=== PATIENT | female | born 1945 | race Caucasian/White ===

== ENCOUNTER 2025-11-08 21:13 | Emergency (ER) | payer MEDICARE, SELFPAY ==
--- OUTSIDE RECORDS SUMMARY | 2025-10-25 10:35 | XMS_ITS | Encounter Summary ---
Author Organization [facility] Address [address] [place] [address] Care Team Providers Care Motor Electrician Name Role Phone Unavailable Primary Care Provider Unavailabl e Reason for Visit * ReasonCommentsFollow-up Encounter Details DateTypeDepartmentCare Team (Latest Contact Info)Pnxhhtmacxg21/08/2025 10:35 AM ESTOffice Visit [facility] [address] [facility] [address] [place] [address] Shaina Espinoza APRN-CNP [address] [facility] [address] [place] [address] Other atopic dermatitis; Melasma Social History Tobacco UseTypesPacks/DayYears UsedDateSmoking Tobacco: NeverSmokeless Tobacco: NeverAlcohol UseStandard Drinks/WeekCommentsNot Currently0 (1 standard drink = 0.6 oz pure alcohol)CommentsNoSex and Gender InformationValueDate RecordedSex Assigned at BirthNot on fileLegal DcaVnphpb77/01/2023 8:32 PM EDT Gender IdentityNot on fileSexual OrientationNot on filedocumented as of this encounter Progress Notes * KAYLEN Sanchez - 10/25/2025 10:35 AM EST Follow up Diagnosis: Atopic Dermatitis Location: neck Last visit: 1 month ago Symptoms: clear today Status: stable on treatment Current treatment: Triamcinolone 0.025% cream All pertinent medical history, medications, and allergies were reviewed. General Exam: alert, oriented to person, place, and time, normal affect, well appearing Unaccompanied A focused exam completed based on patient reported problems, see below: Skin Exam 1. OTHER ATOPIC DERMATITIS Neck - Anterior Clear today Discussed that atopic dermatitis is a chronic condition that can be controlled but not cured. Continue TAC 0.1 % cream bid prn when flared, hold if smooth/asymptomatic. Encouraged daily moisturizing and gentle cleansers to prevent flares. Notify office if flaring despite treatment. Existing Treatments - triamcinolone (Kenalog) 0.1 % cream - Apply topically 2 (two) times a day as needed for rash, 30 day supply 2. MELASMA Neck - Posterior - hydroquinone 4 % cream - Neck - Posterior - Apply to the affected area on back/neck, once daily, 30 day supply Next Visit: 1 year, follow up documented in this encounter Plan of Treatment DateTypeDepartmentCare Team (Latest Contact Info)Ovvghelztjg88/10/2026 9:30 AM ESTOffice Visit [facility] [address] [place] [address] Shaina Espinoza APRN-CNP [address] [place] [address] documented as of this encounter Visit Diagnoses Diagnosis Other atopic dermatitis Melasma Other dyschromia documented in this encounter
[2025-11-08] VITALS (11 sets, daily range): BP systolic 82–153; BP diastolic 5–94; PULSE 126; TEMP 36.9; O2SAT 96–100; BMI 51.7
--- NOTE | 2025-11-08 22:33 | ED.EPISTAXI1 ---
HPI - Epistaxis General Chief Complaint: Epistaxis Stated Complaint: Epistaxis Time Seen by Provider: 11/08/25 21:47 Source: patient Mode of arrival: walk-in Limitations: no limitations History of Present Illness HPI Narrative: This 80-year-old female presents for evaluation of a nosebleed that started several hours prior to arrival. She is on Plavix. She states that she has recently had some nasal congestion because of the heat going on in her house. Once the nosebleed started it has not stopped. She is swallowing the blood and having some vomiting of blood clots. 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 Patient with blood clots in an emesis bag as well HEENT: Normocephalic atraumatic, mucous membranes are slightly pale, active bleeding from the left nares, no site able to be noted Neck: Supple, no meningeal signs, no anterior or posterior cervical lymphadenopathy Chest: Lungs are clear to auscultation with good air entry, there is no wheezing rhonchi or rales appreciated no accessory muscle use, patient is speaking in complete sentences-no chest wall tenderness to palpation CVS: Regular rate and rhythm S1-S2, echocardiac in the 120s no murmurs rubs or gallops, pulses are brisk and equal bilaterally ABD: Soft, nondistended, nontender, no rebound guarding or rigidity, bowel sounds are normal, no pulsatile masses appreciated Extremities: Moving all extremities, no lower extremity tenderness or swelling noted, Skin: Normal in appearance without rash,pallor, petechiae or purpura Neuro: No focal deficits Constitutional Vital Signs, click to edit/add: Last Vital Signs Temp 98.4 F 11/08/25 21:36 Pulse 126 H 11/08/25 21:36 Resp 16 11/08/25 21:36 BP 142/85 H 11/09/25 00:00 Pulse Ox 98 11/09/25 00:00 O2 Del Method Room Air 11/08/25 21:36 Course Vital Signs Vital signs: Vital Signs Temperature 98.4 F 11/08/25 21:36 Pulse Rate 126 H 11/08/25 21:36 Respiratory Rate 16 11/08/25 21:36 Blood Pressure 153/94 H 11/08/25 21:36 Pulse Oximetry 98 11/08/25 21:36 Oxygen Delivery Method Room Air 11/08/25 21:36 Temperature 98.4 F 11/08/25 21:36 Pulse Rate 126 H 11/08/25 21:36 Respiratory Rate 16 11/08/25 21:36 Blood Pressure 142/85 H 11/09/25 00:00 Pulse Oximetry 98 11/09/25 00:00 Oxygen Delivery Method Room Air 11/08/25 21:36 MDM - Epistaxis MDM Narrative Medical decision making narrative: This 80-year-old female who is on Plavix presents for evaluation of a nosebleed that started several hours prior to arrival. She had copious bleeding from the left nares. I was unable to see exactly where the bleeding was coming from. There were no beds available in the emergency department and a Rhino Rocket was placed in the triage bay. The patient then became dizzy, diaphoretic and her blood pressure dropped. She was transferred to room 6 and an IV was placed and she was given IV fluids and Zofran. She has vomited several times with large clots likely related to swallowing blood. She was also medicated with Tylenol for her nasal pain after the Rhino Rocket was placed. I suspect that the patient was nauseated and also had a vagal reaction to the Rhino Rocket being placed in her left nares. After a short period of time her blood pressure improved and at the time of this dictation her blood pressure was 129/62. Routine labs were ordered and are reviewed. She has normal white count. She is mildly anemic at 8.6. The patient states that she has a history of anemia. Comprehensive metabolic profile is normal mildly elevated BUN at 34 and creatinine of 1.67. I do not have any prior labs for comparison purposes. Glucose is elevated at 186. Patient was continually monitored on the security monitor. She has remained hemodynamically stable and her blood pressure has improved into the 140s over 80s. Bleeding has ceased from her nose and she is not having any nausea or vomiting at this time. Repeat CBC was ordered and her hemoglobin is now 7.7. The patient does have a history of myelodysplasia and follows up with the cancer center at [facility]. She feels comfortable being discharged home. She was encouraged to leave the nasal packing in place for 24 to 36 hours and either follow-up here or at urgent care or her family doctor's office for removal. She is agreeable to this. Lab Data Labs: Lab Results 11/08/25 11/09/25 Range/Units 22:35 00:00 WBC 8.4 6.0 (4.0-11.0) 10^3/uL RBC 2.92 L 2.60 L (4.20-5.40) 10^6/uL Hgb 8.6 L 7.7 L (12.0-16.0) g/dL Hct 27.3 L 24.3 L (36.0-48.0) % MCV 93.5 93.5 (81.0-99.0) fL MCH 29.5 29.6 (26.7-34.0) pg MCHC 31.5 31.7 (29.9-35.2) g/dL RDW 17.7 H 18.0 H (11.0-15.0) % Plt Count 283 205 (150-450) 10^3/uL MPV 9.9 10.3 (9.5-13.5) fL Neut % (Auto) 64.6 (43.0-75.0) % Lymph % (Auto) 12.6 L (20.5-60.0) % [place] % (Auto) 6.4 (1.7-12.0) % Eos % (Auto) 3.0 (0.9-7.0) % Baso % (Auto) 2.5 H (0.2-2.0) % Neut # (Auto) 3.9 (1.4-6.5) 10^3/uL Lymph # (Auto) 0.8 L (1.2-3.8) 10^3/uL [place] # (Auto) 0.4 (0.3-0.8) 10^3/uL Eos # (Auto) 0.2 (0.0-0.7) 10^3/uL Baso # (Auto) 0.2 H (0.0-0.1) 10^3/uL Abs Immat Gran (auto) 0.65 H (0.00-0.03) 10^3/uL Seg Neuts % (Manual) 56.0 (43.0-75.0) Band Neutrophils % 1.0 (0-5) % Lymphocytes % (Manual) 24.0 (20.5-60.0) % Monocytes % (Manual) 6.0 (1.7-12.0) % Eosinophils % (Manual) 4.0 (0.9-7.0) % Basophils % (Manual) 6.0 H (0.2-2.0) % Metamyelocytes % 3.0 Imm/Tot Granulo (auto) 10.9 H (0.0-0.5) % Neutrophils # (Manual) 4.70 (1.4-6.5) 10^3/uL Band Neutrophils # 0.1 (0.0-0.3) 10^3/uL Lymphocytes # (Manual) 2.01 (1.20-3.80) 10^3/uL Monocytes # (Manual) 0.50 (0.30-0.80) 10^3/uL Eosinophils # (Manual) 0.33 (0.00-0.70) 10^3/uL Basophils # (Manual) 0.50 H (0.00-0.10) 10^3/uL Metamyelocytes # 0.25 Nucleated RBCs 5 Anisocytosis 1+ Sodium 140 (136-145) mmol/L Potassium 3.6 (3.5-5.1) mmol/L Chloride 104 (98-107) mmol/L Carbon Dioxide 25.5 (21.0-32.0) mmol/L Anion Gap 14.1 BUN 34.0 H (7.0-18.0) mg/dL Creatinine 1.67 H (0.55-1.02) mg/dL Est GFR ( Amer) 36 L (>=60 mL/min/1.73m^2) Est GFR (Non-Af Amer) 29 L (>=60 mL/min/1.73m^2) BUN/Creatinine Ratio 20.4 Glucose 186 H (74-106) mg/dL Calcium 8.6 (8.5-10.1) mg/dL Total Bilirubin 1.1 H (0.2-1.0) mg/dL AST 24 (15-37) U/L ALT 19 (14-59) U/L Alkaline Phosphatase 103 (46-116) U/L Total Protein 6.9 (6.4-8.2) g/dL Albumin 3.9 (3.4-5.0) g/dL Globulin 3.0 g/dL Albumin/Globulin Ratio 1.3 Discharge Plan Discharge Chief Complaint: Epistaxis Clinical Impression: Epistaxis, Anemia Patient Disposition: Home, Self-Care Time of Disposition Decision: 00:33 Condition: Good Print Language: Sinhala Instructions: Nosebleed (ED), Anemia (ED) Additional Instructions: Nasal packing can be removed in 24 to 36 hours. You can return to the emergency department, follow-up with your family physician or go to urgent care to have it removed. The balloon needs to be deflated before it can be removed. Please follow-up with your cancer doctor as well with regards to your anemia. At this time you do not need a blood transfusion. Return to emergency department for recurrent nasal bleeding, dizziness, shortness of breath or any concerns. Referrals: CONNOR MOSQUERA [Primary Care Provider, Family Practice] - 1 week Procedures ED Procedure Instructions Procedures Procedures: Procedure note: Epistaxis management; the patient was instructed to blow her nose gently to remove any clots in her nasal passages. Afrin was then instilled into both nasal passages. A 5.5 cm Rhino Rocket was then instilled into the left nasopharynx. This controlled her bleeding.
--- NOTE | 2025-11-08 22:37 | PC.NURSE ---
2199 Dr Gibbs previously evaluated patient and inserted Rhino rocket in left nares due to active nose bleed. 2209 Patient nauseated and emesis of blood clots BP 82/50. Staff with patient at this time. Patient states she is light headed and noted to be pale. Patient states she has history of Anemia. 2218 bp 94/82 223 Patient moved from Triage to Room 6. M Xiang RN in at bedside with patient.
--- OUTSIDE RECORDS SUMMARY | 2025-11-08 22:46 | XMS_ITS | Encounter Summary ---
Author Organization [facility] Address [address] [place] [address] Care Team Providers Care Hedis Registered Nurse Rn Name Role Phone Unavailable Primary Care Provider Unavailabl e Encounter Details DateTypeDepartmentCare Team (Latest Contact Info)Xcecxxniqnw75/08/2025Travel Social History Tobacco UseTypesPacks/DayYears UsedDateSmoking Tobacco: NeverSmokeless Tobacco: NeverAlcohol UseStandard Drinks/WeekCommentsNot Currently0 (1 standard drink = 0.6 oz pure alcohol)CommentsNoSex and Gender InformationValueDate RecordedSex Assigned at BirthNot on fileLegal AbuBqccbc91/01/2023 8:32 PM EDT Gender IdentityNot on fileSexual OrientationNot on filedocumented as of this encounter Plan of Treatment DateTypeDepartmentCare Team (Latest Contact Info)Ghtapxcwhiy91/10/2026 9:30 AM ESTOffice Visit [facility] [address] [facility] [address] [place] [address] Shaina Espinoza, GOLF PLAYER ASSISTANT-BUILDINGS AND GROUNDS SUPERVISOR [address] [facility] [address] [place] [address] documented as of this encounter Visit Diagnoses Not on filedocumented in this encounter
--- OUTSIDE RECORDS SUMMARY | 2025-11-08 22:46 | XMS_ITS | Encounter Summary ---
Author Organization [facility] Address [address] [place] [address] Care Team Providers Care Scrap Bunch Maker Name Role Phone Unavailable Primary Care Provider Unavailabl e Encounter Details DateTypeDepartmentCare Team (Latest Contact Info)Zvqcvhxnbet01/15/2025External Result Encounter [facility] External Department Unsolicited Thor Monson, DO [address] [place] [address] Social History Tobacco UseTypesPacks/DayYears UsedDateSmoking Tobacco: NeverSmokeless Tobacco: NeverAlcohol UseStandard Drinks/WeekCommentsNot Currently0 (1 standard drink = 0.6 oz pure alcohol)CommentsNoSex and Gender InformationValueDate RecordedSex Assigned at BirthNot on fileLegal UzjOhsofn25/01/2023 8:32 PM EDT Gender IdentityNot on fileSexual OrientationNot on filedocumented as of this encounter Plan of Treatment DateTypeDeconway regional rehabilitation hospitalCare Team (Latest Contact Info)Yppptgtnryp85/10/2026 9:30 AM ESTOffice Visit [facility] [address] [facility] [address] [place] [address] Shaina Espinoza, CHEESE GRADER-INDUSTRIAL PHOTOGRAPHER [address] [facility] [address] [place] [address] NameTypePriorityAssociated DiagnosesDate/TimeCBC auto differentialLabSTAT 11/01/2025 10:24 AM ESTdocumented as of this encounter Procedures Procedure NamePriorityDate/TimeAssociated DiagnosisCommentsDIFF AND CBCSTAT 11/01/2025 10:24 AM EST documented in this encounter Results * (ABNORMAL) DIFF AND CBC (11/01/2025 10:24 AM EST)ComponentValueRef RangeTest MethodAnalysis TimePerformed AtPathologist SignatureWBC5.93.8 - 11.6 [CFU]/mL 11/01/2025 10:47 AM [facility] CtrUNCORRECTED WHITE BLOOD COUNT5.93.8 - 11.6 10*3/uL11/01/2025 10:47 AM [facility] CtrRBC3.26(L)3.60 - 5.00 10*6/uL11/01/2025 10:47 AM [facility] CtrHEMOGLOBIN9.6(L)11.8 - 15.4 g/dL11/01/2025 10:47 AM [facility] LonLTIUPTAKAR60.5(L)34.0 - 46.4 %11/01/2025 10:47 AM [facility] GttFYV03.480 - 100 fL11/01/2025 10:47 AM [facility] MeiGJS30.624.7 - 34.3 pg11/01/2025 10:47 AM [facility] DgpTOGU83.832.0 - 35.0 g/dL11/01/2025 10:47 AM [facility] CtrRED CELL DISTRIBUTION WIDTH, RDW18.4(H)11.9 - 15.3 %11/01/2025 10:47 AM [facility] CtrPLATELET MJYAG838 150 - 450 10*3/uL11/01/2025 10:47 AM [facility] CtrMEAN PLATELET VOLUME, MPV7.26.3 - 10.7 fL11/01/2025 10:47 AM [facility] CtrSpecimen (Source)Anatomical Location / LateralityCollection Method / VolumeCollection TimeReceived TimeBlood (Blood)11/01/2025 10:24 AM EST 11/01/2025 10:24 AM EST Narrative Authorizing ProviderResult TypeResult StatusThor BEVERLYAB BLOOD ORDERABLESFinal ResultPerforming OrganizationAddressCity/State/ZIP CodePhone Number [address] [place] [address], [facility] [address] [place] [address] documented in this encounter Visit Diagnoses Not on filedocumented in this encounter
--- OUTSIDE RECORDS SUMMARY | 2025-11-08 22:46 | XMS_ITS | Encounter Summary ---
Author Organization [facility] Address [address] [facility] [place] [address] Care Team Providers Care Charge Aide Name Role Phone Unavailable Primary Care Provider Unavailabl e Encounter Details DateTypeDepartmentCare Team (Latest Contact Info)Wkmftsdoues69/08/2025amboo flowsheet [facility] [address] [place] [address] Shaina Espinoza APRN-EQUIPMENT OR MACHINERY CLEANER [address] [place] [address] Social History Tobacco UseTypesPacks/DayYears UsedDateSmoking Tobacco: NeverSmokeless Tobacco: NeverAlcohol UseStandard Drinks/WeekCommentsNot Currently0 (1 standard drink = 0.6 oz pure alcohol)CommentsNoSex and Gender InformationValueDate RecordedSex Assigned at BirthNot on fileLegal VdvWrgyff02/01/2023 8:32 PM EDT Gender IdentityNot on fileSexual OrientationNot on filedocumented as of this encounter Plan of Treatment DateTypeDepartmentCare Team (Latest Contact Info)Llizqmtbfqw84/10/2026 9:30 AM ESTOffice Visit [facility] [place] [facility] [address] [place] [address] Shaina Espinoza APRN-EQUIPMENT OR MACHINERY CLEANER [address] [place] [address] documented as of this encounter Visit Diagnoses Not on filedocumented in this encounter
--- OUTSIDE RECORDS SUMMARY | 2025-11-08 22:46 | XMS_ITS | Encounter Summary ---
Author Organization [facility] Address [address] [place] [address] Care Team Providers Care Equipment Scheduler Name Role Phone Unavailable Primary Care Provider Unavailabl e Encounter Details DateTypeDepartmentCare Team (Latest Contact Info)Yczzcmygoze25/15/2025External Result Encounter [facility] External Department Unsolicited Thor Monson, DO [address] [place] [address] Social History Tobacco UseTypesPacks/DayYears UsedDateSmoking Tobacco: NeverSmokeless Tobacco: NeverAlcohol UseStandard Drinks/WeekCommentsNot Currently0 (1 standard drink = 0.6 oz pure alcohol)CommentsNoSex and Gender InformationValueDate RecordedSex Assigned at BirthNot on fileLegal DvaPfcckc86/01/2023 8:32 PM EDT Gender IdentityNot on fileSexual OrientationNot on filedocumented as of this encounter Plan of Treatment DateTypeDepartharbor beach community hospitalCare Team (Latest Contact Info)Umrpsuxlgmc09/10/2026 9:30 AM ESTOffice Visit [facility] [address] [facility] [address] [place] [address] Shaina Espinoza, DRAWER LINER-PACKAGE YARNS DRYING MACHINE OPERATOR [address] [facility] [address] [place] [address] documented as of this encounter Procedures Procedure NamePriorityDate/TimeAssociated DiagnosisCommentsPATHOLOGIST SLIDE REVIEW ([facility])STAT101/02/2025 10:24 AM EST documented in this encounter Results * PATHOLOGIST SLIDE REVIEW ([facility]) (11/01/2025 10:24 AM EST)ComponentValueRef RangeTest MethodAnalysis TimePerformed AtPathologist SignaturePATHOLOGIST SLIDE REVIEWOrdered Path Kinevv1411/01/2025 12:09 PM [facility] CtrSpecimen (Source)Anatomical Location / LateralityCollection Method / VolumeCollection TimeReceived TimeOtherTopography unknown / Unknown 11/01/2025 10:24 AM EST11/01/2025 10:24 AM EST Narrative Authorizing ProviderResult TypeResult StatusThor Monson DOLAB BLOOD ORDERABLESFinal ResultPerforming OrganizationAddressCity/State/ZIP CodePhone Number [facility] [address] [place] [address], [facility] [address] [place] [address] documented in this encounter Visit Diagnoses Not on filedocumented in this encounter
--- OUTSIDE RECORDS SUMMARY | 2025-11-08 22:46 | XMS_ITS | Encounter Summary ---
Author Organization [facility] Address [address] [place] [address] Care Team Providers Care Senior Catering Sales Manager Name Role Phone Unavailable Primary Care Provider Unavailabl e Encounter Details DateTypeDepartmentCare Team (Latest Contact Info)Nlfqhkgstar18/15/2025External Result Encounter [facility] External Department Unsolicited Thor Monson, DO [address] [place] [address] Social History Tobacco UseTypesPacks/DayYears UsedDateSmoking Tobacco: NeverSmokeless Tobacco: NeverAlcohol UseStandard Drinks/WeekCommentsNot Currently0 (1 standard drink = 0.6 oz pure alcohol)CommentsNoSex and Gender InformationValueDate RecordedSex Assigned at BirthNot on fileLegal EupKsfmwx95/01/2023 8:32 PM EDT Gender IdentityNot on fileSexual OrientationNot on filedocumented as of this encounter Plan of Treatment DateTypeDepartmclaren thumb regionCare Team (Latest Contact Info)Lphfwbzjpyp66/10/2026 9:30 AM ESTOffice Visit [facility] [address] [facility] [address] [place] [address] Shaina Espinoza, FISH AND GAME CLUB MANAGER-PUPPY TRAINER [address] [facility] [address] [place] [address] documented as of this encounter Procedures Procedure NamePriorityDate/TimeAssociated DiagnosisCommentsCOMPREHENSIVE METABOLIC CJIUKSQXH72/15/2025 10:24 AM EST documented in this encounter Results * (ABNORMAL) Comprehensive metabolic panel (11/01/2025 10:24 AM EST)Component ValueRef RangeTest MethodAnalysis TimePerformed AtPathologist SignatureGlucose 9270 - 100 mg/dL11/01/2025 11:07 AM [facility] CtrComment: Random Glucose Reference Range is dependent on time and content of last meal. Glucose of more than 200 mg/dL in a nonstressed, ambulatory subject supports the diagnosis of Diabetes Mellitus. ADA recommended reference range TKB047 - 25 mg/dL11/01/2025 11:07 AM [facility] CtrCREATININE 0.790.60 - 1.20 mg/dL11/01/2025 11:07 AM [facility]tr ESTIMATED GFR>60. 11:07 AM [facility] ZbsNqhaxt343 136 - 145 mmol/L101/02/2025 11:07 AM [facility] CtrPotassium, Bld4.33.5 - 5.1 mmol/L101/02/2025 11:07 AM [facility] Ctr Sjcgopbn97266 - 107 mmol/L101/02/2025 11:07 AM [facility] Ctr Carbon Vzqnkwl54.621.0 - 31.0 mmol/L101/02/2025 11:07 AM [facility] CtrAnion Gap9.76.0 - 15. 11:07 AM [facility] CtrCalcium8.88.6 - 10.3 mg/dL11/01/2025 11:07 AM [facility] CtrTOTAL PROTEIN6.56.4 - 8.9 g/dL11/01/2025 11:07 AM [facility] CtrALBUMIN LEVEL4.53.5 - 5.7 g/dL11/01/2025 11:07 AM [facility] CtrGLOBULIN2.0g/dL11/01/2025 11:07 AM [facility] CtrALBUMIN/GLOBULIN RATIO2. 11:07 AM [facility] CtrBILIRUBIN,TOTAL1.1(H)0.3 - 1.0 mg/dL11/01/2025 11:07 AM [facility] CtrASPARTATE AMINO XXAMAATLBMF7619 - 39 U/L101/02/2025 11:07 AM [facility] CtrALANINE PKKSRILGJTIGYZGB040 - 52 U/L 11/01/2025 11:07 AM [facility] CtrALKALINE EBNHITVFGJQ74670 - 104 U/L101/02/2025 11:07 AM [facility] CtrCREATININE CLR CALC WWNCIBMU70.6611/01/2025 11:07 AM [facility] CtrSpecimen (Source)Anatomical Location / LateralityCollection Method / VolumeCollection TimeReceived TimeOtherTopography unknown / Pfclmoy5511/01/2025 10:24 AM EST 11/01/2025 10:24 AM EST Narrative Authorizing ProviderResult TypeResult StatusThor BEVERLYAB BLOOD ORDERABLESFinal ResultPerforming OrganizationAddressCity/State/ZIP CodePhone Number [facility] [address] [place] [address], [facility] [address] [place] [address] documented in this encounter Visit Diagnoses Not on filedocumented in this encounter
--- OUTSIDE RECORDS SUMMARY | 2025-11-08 22:46 | XMS_ITS | Clinical Summary ---
Author Organization [facility] Address [address] [place] [address] Care Team Providers Care Harvesting Contractor Name Role Phone Howard Sullivan Primary Care Provider [phone] Allergies Active AllergyReactionsCriticalityNoted DateCommentsPenicillinsIntolerance 02/03/2013 Medications MedicationSigDispense QuantityRefillsLast FilledStart DateEnd DateStatus MULTIVITAMIN WITH MINERALS (MULTI-VIT 55 PLUS ORAL) Indications:Essential thrombocythemia (HCC)Take 1 tablet by mouth once daily. Active CALCIUM CARBONATE (CALTRATE 600 ORAL) Indications:Essential thrombocythemia (HCC)Take 1 tablet by mouth once daily. Active rivaroxaban (XARELTO) 15 mg (42)- 20 mg (9) DsPk rivaroxaban Rivaroxaban Active 0 Oral .COMPLEX 51 August 31, 2020 12:56pm must administer with evening meal 08-31-2020 [facility] ([id number])08/31/2020Active Active Problems ProblemNoted DateDiagnosed DateOsteoporosis, post-lowdquwqwf93/30/2013Essential rsacsirisrfyps70/09/2013 Immunizations ImmunizationAdministration DatesNext Dueinfluenza (HD-IIV3) vaccine, age 65+ yr, high dose, trivalent, PF (FLUZONE HIGH-DOSE)09/25/2019,10/07/2018,09/03/2016 influenza vaccine, unspecified chprjweoovk16/15/2013pneumococcal conjugate (PCV13) vaccine, 13 valent (PREVNAR 13)09/18/2015 Social History Tobacco UseTypesPacks/DayYears UsedDateSmoking Tobacco: NeverSmokeless Tobacco: NeverAlcohol UseStandard Drinks/WeekCommentsNo0 (1 standard drink = 0.6 oz pure alcohol)PHQ-2AnswerDate RecordedPHQ-2 refrq482Area Deprivation Index AnswerDate RecordedNational Score (1-100), lower number is lower riskNot on file 10/26/2020State Score (1-10), lower number is lower riskNot on file10/26/2020 Data from: https://www.neighborhoodatlas.medicine.[facility].edu/. Last address used for calculationNot on file10/26/2020CommentsNoSex and Gender Information ValueDate RecordedSex Assigned at BirthNot on fileLegal HsxHyaewk99/04/2013 10:53 AM ESTGender IdentityNot on fileSexual OrientationNot on file Last Filed Vital Signs Vital SignReadingTime TakenCommentsBlood Svupbwui434/5309/06/2020 10:44 AM EDT Twkei176709/06/2020 10:44 AM QNXRwqcemlwyau70.4 ??C (97.5 ??F)09/06/2020 10:44 AM EDTRespiratory Plpd7258 10:44 AM EDTOxygen Mtqvejrmkw90%09/06/2020 10:44 AM EDTInhaled Oxygen Concentration--Ssqgiv69.1 kg (132 lb 6.4 oz)09/06/2020 10:44 AM DJZPwlcmi159.1 cm (4' 11.49 )09/06/2020 10:44 AM EDTBody Mass Index26.3 09/06/2020 10:44 AM EDT Plan of Treatment Health MaintenanceDue DateLast DoneCommentsAnxiety Pqywoxqhr74/01/1961Depression Fwovjgmvq98/01/1961DTaP,Tdap,Td Vaccine (1 - Tdap)2Bone Density Qeimqvrgq16/01/2008Shingrix Vaccine (2 of 2)Pneumococcal Vaccine: 50+ (2 of 2 - PCV20 or PCV21)RSV Vaccine (1 - 1- dose 75+ series)2018Diabetes Sbcmdwdxt27/20/691890, 03/23/2020, 11/26/2019, Additional history existsAdvance Directive Ilhrqmvsku19/11/2024 Covid-19 Vaccine ( season)2025Influenza Vaccine (#1)2025 09/01/2020, 09/25/2019, 10/07/2018, Additional history exists Procedures Procedure NamePriorityDate/TimeAssociated DiagnosisCommentsCOMPREHENSIVE METABOLIC VNBBRWqiiynt10/20/2020 10:38 AM EDT Essential thrombocythemia (HCC) from Last 3 Months or Most Recently Relevant to Health Maintenance Results * (ABNORMAL) COMP METABOLIC PANEL (09/06/2020 10:38 AM EDT)ComponentValueRef RangeTest MethodAnalysis TimePerformed AtPathologist SignatureProtein, Total 7.86.3 - 8.0 g/dL09/06/2020 11:02 AM [facility] CareAlbumin4.83.9 - 4.9 g/dL09/06/2020 11:02 AM [facility] CareCalcium9.98.5 - 10.2 mg/dL09/06/2020 11:02 AM [facility] CareBilirubin, Total1.00.2 - 1.3 mg/dL09/06/2020 11:02 AM [facility] ChristianacareAlkaline Rsngareyrbf31209 - 123 U/L1 11:02 AM [facility] MkxqZAF86 13 - 35 U/L1 11:02 AM [facility] Pshhtci834(H)74 - 99 mg/dL09/06/2020 11:02 AM [facility] HospitalComment: The [place] Diabetes Association (ADA) provides guidance for cutoff values for fasting glucose and random glucose. The ADA defines fasting as no caloric intake for at least 8 hours. Fasting plasma glucose results between 100 to 125 mg/dL indicate increased risk for diabetes (prediabetes). Fasting plasma glucose results greater than or equal to 126 mg/dL meet the criteria for diagnosis of diabetes. In the absence of unequivocal hyperglycemia, results should be confirmed by repeat testing. In a patient with classic symptoms of hyperglycemia or hyperglycemic crisis, random plasma glucose results greater than or equal to 200 mg/dL meet the criteria for diagnosis of diabetes. Reference: Standards of Medical Care in Diabetes 2016, [place] Diabetes Association. Diabetes Care. 2016.39(Suppl 1). PCK317 - 21 mg/dL09/06/2020 11:02 AM [facility] Creatinine0.55(L)0.58 - 0.96 mg/dL09/06/2020 11:02 AM [facility] VrvdKlltzc136507 - 144 mmol/L1 11:02 AM [facility] CarePotassium4.63.7 - 5.1 mmol/L1 11:02 AM [facility] YoweZvnvhoda16356 - 105 mmol/L1 11:02 AM [facility] AqkqJZ96938 - 30 mmol/L 09/06/2020 11:02 AM [facility] CareAnion Syf278 - 18 mmol/L1 11:02 AM [facility] DzikOZK011 - 38 U/L1 11:02 AM [facility] CareeGFR->6009/06/2020 11:02 AM [facility] CareeGFR- All Other Races>60.09/06/2020 11:02 AM [facility] Cancer CareComment: eGFR (Estimated GFR) Units of measure: mL/min/1.73 meters squared eGFR is derived from the reexpressed MDRD Study equation using the following parameters: serum creatinine, age, gender and race. The creatinine assay has been calibrated to be traceable to IDMS. An eGFR <60 mL/min/1.73m2 for >3 months is consistent with chronic kidney disease. Refer to KDOQI guidelines for clinical interpretation. In patients with unstable renal function, e.g. those with acute kidney injury, the eGFR may not accurately reflect actual GFR. Specimen (Source)Anatomical Location / LateralityCollection Method / Volume Collection TimeReceived TimeBlood specimen (specimen)BLOOD SPECIMEN / Unknown 09/06/2020 10:38 AM EDT1 10:40 AM EDT Narrative Authorizing ProviderResult TypeResult StatusEdward Maki MDLABORATORYFinal ResultPerforming OrganizationAddressCity/State/ZIP CodePhone Number [facility] [address] [place] [address] [facility] [address] [place], [place] from Last 3 Months or Most Recently Relevant to Health Maintenance Insurance Care Teams Team MemberRelationshipSpecialtyStart DateEnd Howard Sullivan [address] [place] [phone] PCP - GeneralFamily Medicine01/07/19
--- OUTSIDE RECORDS SUMMARY | 2025-11-08 22:46 | XMS_ITS | Clinical Summary ---
Author Organization [facility] Address [address] [place] [address] Care Team Providers Care Hand Molder Name Role Phone Unavailable Primary Care Provider Unavailabl e Allergies Active AllergyReactionsCriticalityNoted DateCommentsPenicillinsOther,Diarrhea,GI intolerance,Cjfkgiz9802/03/2013 Medications MedicationSigDispense QuantityRefillsLast FilledStart DateEnd DateStatus rivaroxaban (Xarelto) 20 MG tablet Daily5Active levothyroxine (Synthroid, Levoxyl) 75 MCG tablet Daily5Active fedratinib (Inrebic) 100 MG capsule Daily4Active acetaminophen (Tylenol) 325 MG suppository Insert into the rectumActive triamcinolone (Kenalog) 0.1 % cream Indications:Other atopic dermatitisApply topically 2 (two) times a day as needed for rash, 30 day supply 240 g 5Active hydroquinone 4 % cream Indications:MelasmaApply to the affected area on back/neck, once daily, 30 day supply 28.35 g 1115Active Active Problems ProblemNoted DateDiagnosed DateBlood clot in vein Encounters DateTypeDepartmentCare SfrbGsgcxcmnklo46/15/2025External Result Encounter [facility] Unsolicited Thor Monson, DO 11/01/2025External Result Encounter [facility] External [facility] Unsolicited Thor Monson, DO 11/01/2025External Result Encounter [facility] External [facility] Unsolicited Thor Monson, DO 10/25/2025 10:35 AM ESTOffice Visit [facility] [address] [facility] [address] [place] [phone] Shaina Espinoza, WIRELESS TEAM MEMBER-WAITER/WAITRESS TAVERN Other atopic dermatitis; Gidbbir30/08/2025amboo flowsheet [facility] [place] [facility] [address] [place] [address] Shaina Espinoza, WIRELESS TEAM MEMBERWAITER/WAITRESS TAVERN 10/25/20250186Otiuqt61/20/2025External Result Encounter [facility] External [facility] Unsolicited Thor Monson, DO 10/07/2025External Result Encounter [facility] Unsolicited Thor Monson, DO 09/23/2025 10:40 AM ESTOffice Visit [facility] [place] [facility] [address] [place] [address] Shaina Espinoza, WIRELESS TEAM MEMBERWESSON WOMEN'S [facility] Seborrheic keratosis (Primary Dx); Other atopic xapctmmivd76/06/2025amboo flowsheet [facility] [place] [facility] [address] [place] [phone] Shaina Espinoza APRNWESSON WOMEN'S [facility] 09/23/20259078Efkygt44/05/2025External Result Encounter [facility] External Department Unsolicited Thor Monson, DO 09/22/2025External Result Encounter [facility] Unsolicited Thor Monson, DO 09/01/2025External Result Encounter [facility] Unsolicited Thor Monson, DO 09/01/2025External Result Encounter [facility] External [facility] Unsolicited Thor Monson, DO 08/11/2025External Result Encounter [facility] Unsolicited Thor Monson, DO 08/11/2025External Result Encounter [facility] External [facility] Unsolicited Thor Monson, DO 08/11/2025External Result Encounter [facility] External [facility] Unsolicited Thor Monson, DO from Last 3 Months Family History Medical HistoryRelationNameCommentsStrokeFatherBrain cancerSonRelationNameStatus CommentsFatherSon Social History Tobacco UseTypesPacks/DayYears UsedDateSmoking Tobacco: NeverSmokeless Tobacco: Never Tobacco Cessation:Counseling Given: Not Answered Alcohol UseStandard Drinks/WeekCommentsNot Currently0 (1 standard drink = 0.6 oz pure alcohol)CommentsNoSex and Gender InformationValueDate RecordedSex Assigned at BirthNot on fileLegal IloBaialb41/01/2023 8:32 PM EDTGender Identity Not on fileSexual OrientationNot on file Last Filed Vital Signs Vital SignReadingTime TakenCommentsBlood Fgorgvnr039/8004/ 1:09 PM EDT Pulse--Temperature--Respiratory Rate--Oxygen Saturation--Inhaled Oxygen Concentration--Nxcxna69.3 kg (144 lb)02/16/2025 12:54 PM QVGAdgzfd681.8 cm (4' 11.75 )03/03/2018 12:00 PM EDTBody Mass Index28.36003/03/2018 12:00 PM EDT Plan of Treatment DateTypeDepartmentCare Team (Latest Contact Info)Urrzwjtaymc86/10/2026 9:30 AM ESTOffice Visit [facility] [address] [place] [phone] Shaina Espinoza, WIRELESS TEAM MEMBER-WAITER/WAITRESS TAVERN [address] [place] [address] Health MaintenanceDue DateLast DoneCommentsPneumococcal Vaccine: 65+ Years (2 of 2 - PCV20 or PCV21)COVID-19 Vaccine ( season) , 02/07/2021, 01/16/2021Influenza Vaccine (#1)2025 08/13/2024, 08/15/2023, 09/25/2021, Additional history exists Procedures Procedure NamePriorityDate/TimeAssociated DiagnosisCommentsPATHOLOGIST SLIDE REVIEW ([facility])STAT101/02/2025 10:24 AM EST DIFF AND WWFMPNO9011/01/2025 10:24 AM EST COMPREHENSIVE METABOLIC UONOSXIZJ61/15/2025 10:24 AM EST DIFF AND NUWZDCD8610/07/2025 10:49 AM EST COMPREHENSIVE METABOLIC YHOICIRVI42/20/2025 10:49 AM EST DIFF AND RRWHRAE2809/22/2025 8:34 AM EST COMPREHENSIVE METABOLIC GFDDXNQZZ73/05/2025 8:34 AM EST DIFF AND ETOIDPT3909/01/2025 9:12 AM EDT COMPREHENSIVE METABOLIC KTZVRDABG37/15/2025 9:12 AM EDT PATHOLOGIST SLIDE REVIEW ([facility])STAT08/11/2025 8:35 AM EDT DIFF AND FFSZYCI8408/11/2025 8:35 AM EDT CBC WITH AUTO PTDZLKUADNMOGXRV89/24/2025 8:35 AM EDT COMPREHENSIVE METABOLIC QFFQAKCCD30/24/2025 8:35 AM EDT from Last 3 Months Results * (ABNORMAL) DIFF AND CBC (11/01/2025 10:24 AM EST) Only the most recent of5 resultswithin the time period is included. ComponentValueRef RangeTest MethodAnalysis TimePerformed AtPathologist Signature WBC5.93.8 - 11.6 [CFU]/mL11/01/2025 10:47 AM [facility] UNCORRECTED WHITE BLOOD COUNT5.93.8 - 11.6 10*3/uL11/01/2025 10:47 AM [facility] CtrRBC3.26(L)3.60 - 5.00 10*6/uL11/01/2025 10:47 AM [facility] CtrHEMOGLOBIN9.6(L)11.8 - 15.4 g/dL11/01/2025 10:47 AM [facility] AguRBLSBYOCIE17.5(L)34.0 - 46.4 % 11/01/2025 10:47 AM [facility] XzgKUU02.480 - 100 fL 11/01/2025 10:47 AM [facility] IhlGKG93.624.7 - 34.3 pg 11/01/2025 10:47 AM [facility] MymVVTX97.832.0 - 35.0 g/dL 11/01/2025 10:47 AM [facility] CtrRED CELL DISTRIBUTION WIDTH, RDW18.4(H)11.9 - 15.3 %11/01/2025 10:47 AM [facility] CtrPLATELET FACHL992601 - 450 10*3/uL11/01/2025 10:47 AM [facility] CtrMEAN PLATELET VOLUME, MPV7.26.3 - 10.7 fL11/01/2025 10:47 AM [facility] CtrSpecimen (Source)Anatomical Location / Laterality Collection Method / VolumeCollection TimeReceived TimeBlood (Blood)11/01/2025 10:24 AM EST11/01/2025 10:24 AM EST Narrative Authorizing ProviderResult TypeResult StatusTimveronica Monson DOLAB BLOOD ORDERABLESFinal ResultPerforming OrganizationAddressCity/State/[facility] CodePhone Number [facility] [address] [place] [address], [facility] [address] [place] [phone] * PATHOLOGIST SLIDE REVIEW ([facility]) (11/01/2025 10:24 AM EST) Only the most recent of2 resultswithin the time period is included. ComponentValueRef RangeTest MethodAnalysis TimePerformed AtPathologist Signature PATHOLOGIST SLIDE REVIEWOrdered Path Wcnmaa0011/01/2025 12:09 PM [facility] CtrSpecimen (Source)Anatomical Location / LateralityCollection Method / VolumeCollection TimeReceived TimeOtherTopography unknown / Unknown 11/01/2025 10:24 AM EST11/01/2025 10:24 AM EST Narrative Authorizing ProviderResult TypeResult StatusTimveronica Monson DOLAB BLOOD ORDERABLESFinal ResultPerforming OrganizationAddressCity/State/ZIP CodePhone Number [facility] [address] [place] [phone], [facility] [address] [place] [address] * (ABNORMAL) Comprehensive metabolic panel (11/01/2025 10:24 AM EST) Only the most recent of5 resultswithin the time period is included. ComponentValueRef RangeTest MethodAnalysis TimePerformed AtPathologist Signature Syvglpz8616 - 100 mg/dL11/01/2025 11:07 AM [facility] Comment: Random Glucose Reference Range is dependent on time and content of last meal. Glucose of more than 200 mg/dL in a nonstressed, ambulatory subject supports the diagnosis of Diabetes Mellitus. ADA recommended reference range RGY130 - 25 mg/dL11/01/2025 11:07 AM [facility] CtrCREATININE 0.790.60 - 1.20 mg/dL11/01/2025 11:07 AM [facility] ESTIMATED GFR>60. 11:07 AM [facility] CdzFknmon657 136 - 145 mmol/L101/02/2025 11:07 AM [facility] CtrPotassium, Bld4.33.5 - 5.1 mmol/L101/02/2025 11:07 AM [facility] Jlsrxrea55396 - 107 mmol/L101/02/2025 11:07 AM [facility] Carbon Jbzbjsh01.621.0 - 31.0 mmol/L101/02/2025 11:07 AM [facility] CtrAnion Gap9.76.0 - 15. 11:07 AM [facility] CtrCalcium8.88.6 - 10.3 mg/dL11/01/2025 11:07 AM [facility] CtrTOTAL PROTEIN6.56.4 - 8.9 g/dL11/01/2025 11:07 AM [facility] CtrALBUMIN LEVEL4.53.5 - 5.7 g/dL11/01/2025 11:07 AM [facility] CtrGLOBULIN2.0g/dL11/01/2025 11:07 AM [facility] CtrALBUMIN/GLOBULIN RATIO2.312 11:07 AM [facility] CtrBILIRUBIN,TOTAL1.1(H)0.3 - 1.0 mg/dL11/01/2025 11:07 AM [facility] CtrASPARTATE AMINO LLGDBEGGTRT7703 - 39 U/L101/02/2025 11:07 AM [facility] CtrALANINE YYZTZZVOQCKKYHIS586 - 52 U/L 11/01/2025 11:07 AM [facility] CtrALKALINE OGEKKGAGDMG45299 - 104 U/L101/02/2025 11:07 AM [facility] CtrCREATININE CLR CALC DBEQPBDI58.6611/01/2025 11:07 AM [facility] CtrSpecimen (Source)Anatomical Location / LateralityCollection Method / VolumeCollection TimeReceived TimeOtherTopography unknown / Tbzceck9011/01/2025 10:24 AM EST 11/01/2025 10:24 AM EST Narrative Authorizing ProviderResult TypeResult StatusThor Monson DOLAB BLOOD ORDERABLESFinal ResultPerforming OrganizationAddressCity/State/ZIP CodePhone Number [facility] [address] [place] [address], [facility] [address] [place] [address] * (ABNORMAL) CBC auto differential (08/11/2025 8:35 AM EDT)ComponentValueRef RangeTest MethodAnalysis TimePerformed AtPathologist SignatureWBC6.03.8 - 11.6 [CFU]/mL08/11/2025 2:20 PM [facility] CtrUNCORRECTED WHITE BLOOD COUNT6.03.8 - 11.6 10*3/uL08/11/2025 2:20 PM [facility] CtrRBC3.15(L)3.60 - 5.00 10*6/uL08/11/2025 2:20 PM [facility] CtrHEMOGLOBIN9.3(L)11.8 - 15.4 g/dL08/11/2025 2:20 PM EDT [facility] ZliATFGIEJEFO28.4(L)34.0 - 46.4 %08/11/2025 2:20 PM [facility] EaoLTY14.180 - 100 fL08/11/2025 2:20 PM EDT [facility] AstKRN40.624.7 - 34.3 pg08/11/2025 2:20 PM EDT [facility] BsgUYTS81.932.0 - 35.0 g/dL08/11/2025 2:20 PM EDT [facility] CtrRED CELL DISTRIBUTION WIDTH, RDW18.1(H)11.9 - 15.3 %08/11/2025 2:20 PM [facility] CtrPLATELET IEUSP540393 - 450 10*3/uL08/11/2025 2:20 PM [facility] CtrMEAN PLATELET VOLUME, MPV7.76.3 - 10.7 fL08/11/2025 2:20 PM [facility] CtrSpecimen (Source)Anatomical Location / LateralityCollection Method / VolumeCollection TimeReceived TimeBlood (Blood)08/11/2025 8:35 AM EDT 08/11/2025 8:35 AM EDT Narrative Authorizing ProviderResult TypeResult StatusThor Monson DOL BLOOD ORDERABLESFinal ResultPerforming OrganizationAddressCity/State/[facility] CodePhone Number [facility] [address] [place] [address], [facility] [address] [place] [address] from Last 3 Months Insurance
--- OUTSIDE RECORDS SUMMARY | 2025-11-08 22:46 | XMS_ITS | Encounter Summary ---
Author Organization [facility] Address [address] [place] [address] Phone Care Team Providers Care Livestock Breeder Name Role Phone Karl Moura MD Primary Care Provider [phone] Benjamín Weiss MD Unavailable [phone] Encounter Details DateTypeDepartmentCare Team (Latest Contact Info)Gvlmbpwtuqr93/09/2025Specialty Pharmacy [facility] [address] [place] [phone] Aga Denson Refill Coordination Outreach (30 day recurrence) - fedratinib dihydrochloride (Inrebic) for Oncology Core Social History Tobacco UseTypesPacks/DayYears UsedDateSmoking Tobacco: NeverSmokeless Tobacco: NeverAlcohol UseStandard Drinks/WeekCommentsNever0 (1 standard drink = 0.6 oz pure alcohol)CommentsUnknownSex and Gender InformationValueDate Recorded Sex Assigned at BirthNot on fileLegal RwqZlxtsu34/26/2022 5:48 AM ESTGender IdentityNot on fileSexual OrientationNot on filedocumented as of this encounter Plan of Treatment DateTypeDepartmentCare Team (Latest Contact Info)Rtdjbgduhzf45/12/2026 10:20 AM ESTOffice Visit [facility] at [address] [place] [phone] Benjamín Weiss MD [address] MARISA Moss, [address] [place], [place] [id number] documented as of this encounter Visit Diagnoses Not on filedocumented in this encounter Additional Health Concerns AssessmentNoted TimeA fall risk assessment has been completed for the patient 12/19/2023 9:44 AM ESTdocumented as of this encounter Care Teams Team MemberRelationshipSpecialtyStart [place] [address] Department [place] [address] PCP - General06/19/18 Ben[place]ín [place] [address] [facility] [place] [address] Consulting PhysicianHematology and Oncology12/19/23documented as of this encounter
--- OUTSIDE RECORDS SUMMARY | 2025-11-08 22:46 | XMS_ITS | Clinical Summary ---
Author Organization [facility] Address [address] [place] [address] Phone Care Team Providers Care Community Resource Officer Name Role Phone Karl Moura MD Primary Care Provider [phone] Benjamín Weiss MD Unavailable [phone] Allergies Active AllergyReactionsCriticalityNoted ShcbIuloneyeKscjyqmtinJdbqaxkz65/01/2024 Medications MedicationSigDispense QuantityRefillsLast FilledStart DateEnd DateStatus levothyroxine (Synthroid, Levoxyl) 75 mcg tablet Take 1 tablet (75 mcg) by mouth once daily in the morning. Take before meals. 11/13/2023ctive rivaroxaban (XARELTO STARTER PACK) 15 mg (42)- 20 mg (9) tablets,dose pack rivaroxaban Rivaroxaban Active 0 Oral .COMPLEX August 31, 2020 12:56pm must administer with evening meal 08-31-2020 [facility] ([id number])08/31/2020Active acetaminophen (Tylenol) 500 mg capsule Daily06/09/2021ctive fedratinib (Inrebic) 100 mg capsule Indications:Secondary myelofibrosis (Multi)Take 3 capsules (300 mg) by mouth once daily. 90 capsule 9:20 AM EST5Active fedratinib (Inrebic) 100 mg capsule Indications:Secondary myelofibrosis (Multi)Take 3 capsules (300 mg) by mouth once daily. 90 capsule 11:51 AM ESTDiscontinued(Reorder) Active Problems ProblemNoted DateDiagnosed DateSecondary kkvktwbdobgxo57/01/2024 Assessment & Plan (07/01/2025 10:54 AM EDT): 07/01/2025: Discussed that it was overall excellent that she continues to be independent from transfusions. I reviewed that she may now have other options including momelotinib or pacritinib should her blood counts worsen. Additionally I think it is reasonable to consider growth factors, if there isany concern that her anemia is contributing to fatigue. She was not sure today, as she feels her priority is being able to travel and being able to spend time with her grandchildren. Therefore maintaining her performance status is a higher priority for her than considering alternative therapies. Diagnostics: -None required at this time Treatment: -Continue fedratinib Disease Monitoring: -Continue CBC monitoring per Dr. Monson Supportive Care: -None required right now Antimicrobial Prophylaxis: -None indicated at this time IV access: -As needed peripheral IV Assessment & Plan (12/31/2024 3:01 PM EST): 12/31/2024: Discussed that it was overall excellent that she continues to be independent from transfusions. I reviewed that she may now have other options including momelotinib or pacritinib should her blood counts worsen. Additionally I think it is reasonable to consider growth factors, if there isany concern that her anemia is contributing to fatigue. She was not sure today, as she feels her priority is being able to travel and being able to spend time with her grandchildren. Therefore maintaining her performance status is a higher priority for her than considering alternative therapies. Diagnostics: -None required at this time Treatment: -Continue fedratinib Disease Monitoring: -Continue CBC monitoring per Dr. Monson Supportive Care: -None required right now Antimicrobial Prophylaxis: -None indicated at this time IV access: -As needed peripheral IV Assessment & Plan (06/18/2024 8:19 AM EDT): 06/18/2024: Overall patient continues to do well on her current dose of fedratinib. Her hemoglobin appears to be staying stable in the high eights, occasionally low nines. Lipids are at a reasonable number. White cells are reasonable number, continues to be left shifted as expected. I discussed with her that it seems she is tolerating her current dose well. I advised that she might want to reconsider some lifestyle modification including exercise just in order to maintain her health as well as it has. Finally I discussed that if she returns to transfusion dependence, and new medication for patients with JAK2 mutated neoplasms, myelofibrosis been approved called momelotinib. This would probably be my preferred second line agent if her anemia worsens. Diagnostics: -None required at this time Treatment: -Continue fedratinib Disease Monitoring: -Continue CBC monitoring per Dr. Monson Supportive Care: -None required right now Antimicrobial Prophylaxis: -None indicated at this time IV access: -As needed peripheral IV Assessment & Plan (12/19/2023 10:17 AM EST): 12/19/2023: Overall patient continues to do well on her current dose of fedratinib. Her hemoglobin appears to be staying stable in the high eights, occasionally low nines. Lipids are at a reasonable number. White cells are reasonable number, continues to be left shifted as expected. I discussed with her that it seems she is tolerating her current dose well. I advised that she might want to reconsider some lifestyle modification including exercise just in order to maintain her health as well as it has. Finally I discussed that if she returns to transfusion dependence, and new medication for patients with JAK2 mutated neoplasms, myelofibrosis been approved called momelotinib. This would probably be my preferred second line agent if her anemia worsens. Diagnostics: -None required at this time Treatment: -Continue fedratinib Disease Monitoring: -Continue CBC monitoring per Dr. Monson Supportive Care: -None required right now Antimicrobial Prophylaxis: -None indicated at this time IV access: -As needed peripheral IV History of venous tcduetibrmchhpk48/01/2024 Overview (12/19/2023): Had a one time left femoral DVT and has been on rivaroxaban every since that time with no recurrent. Ltdlnuzycbu39/01/2024 Resolved Problems ProblemNoted DateDiagnosed DateResolved DateEssential xgjqcnayztycqj73/09/2013 12/31/2024 Encounters DateTypeDepartmentCare XfvkVmgbizevmxj17/09/2025Specialty Pharmacy [facility] [address] [place] [phone] Aga Denson Refill Coordination Outreach (30 day recurrence) - fedratinib dihydrochloride (Inrebic) for Oncology Core10/19/2025Refill [facility] [address] [place] [address] Estefany Bruce, PHOTOGRAPHIC PROCESS WORKER-BIOMEDICAL ENGINEERING SUPERVISOR Secondary myelofibrosis (Multi)09/21/2025Specialty [facility]acy [facility] [address] [place] [address] Adeola Hercules Refill Coordination Outreach (30 day recurrence) - fedratinib dihydrochloride (Inrebic) for Oncology Corefrom Last 3 Months Social History Tobacco UseTypesPacks/DayYears UsedDateSmoking Tobacco: NeverSmokeless Tobacco: Never Tobacco Cessation:Counseling Given: Not Answered Alcohol UseStandard Drinks/WeekCommentsNever0 (1 standard drink = 0.6 oz pure alcohol)CommentsUnknownSex and Gender InformationValueDate RecordedSex Assigned at BirthNot on fileLegal BihFmoooa91/26/2022 5:48 AM ESTGender Identity Not on fileSexual OrientationNot on file Last Filed Vital Signs Vital SignReadingTime TakenCommentsBlood Bbcszwzw514/7307/01/2025 10:02 AM EDT Gxkvr604507/01/2025 10:02 AM AYDUotnjsqktns18.2 ??C (97.2 ??F)07/01/2025 10:02 AM EDTRespiratory Wnjl445107/01/2025 10:02 AM EDTOxygen Yrfrrtmces12%07/01/2025 10:02 AM EDTInhaled Oxygen Concentration--Nqwsdj49.2 kg (148 lb 2.4 oz)07/01/2025 10:02 AM UMQBtisyd567.7 cm (4' 9.76 )06/18/2024 9:39 AM EDTBody Mass Index31.23 06/18/2024 9:39 AM EDT Plan of Treatment DateTypeDepartmentCare Team (Latest Contact Info)Zbhlkhruaoa40/12/2026 10:20 AM ESTOffice Visit Family Medicine Center [facility] [place] [place] [address] [facility] [facility] [address] [place] [phone] Benjamín Weiss MD [address] MARISA Moss, [address] [place] [address] Health MaintenanceDue DateLast DoneCommentsLipid Panel1943TSH Level 1943OVID-19 Vaccine (#1)4DTaP/Tdap/Td Vaccines (1 - Tdap) 1965Zoster Vaccines (2 of 2)Pneumococcal Vaccine (2 of 2 - PCV20 or PCV21)Bone Density ScanRSV High Risk: (Elderly (60+) or Population) (1 - 1-dose 75+ series) 2018Medicare Annual Wellness Visit (AWV)/, 04/07/2020, 10/07/2018, Additional history existsInfluenza Vaccine (#1)509/, 08/15/2023, 09/25/2021, Additional history existsHIB VaccinesAged OutNo longer eligible based on patient's age to complete this topicHPV VaccinesAged OutNo longer eligible based on patient's age to complete this topicHepatitis A VaccinesAged OutNo longer eligible based on patient's age to complete this topic Hepatitis B VaccinesAged OutNo longer eligible based on patient's age to complete this topicIPV VaccinesAged OutNo longer eligible based on patient's age to complete this topicMeningococcal VaccineAged OutNo longer eligible based on patient's age to complete this topicRotavirus VaccinesAged OutNo longer eligible based on patient's age to complete this topic Insurance MemberSubscriberPlan / Payer (Effective 2023-Present)Name:Grace Fenton Relation to Subscriber:SelfName:Grace Fenton Payer ID:Not on file Group ID:Not on file Type:Not on file Address[address] [address] MemberSubscriberPlan / Payer (Effective 2023-Present)Name:Grace Fenton Relation to Subscriber:SelfName:Grace Fenton Payer ID:Not on file Group ID:Not on file Type:Not on file Address: [place] [phone] Care Teams Team MemberRelationshipSpecialtyStart [place] [address] Department [place] [address] [facility]06/19/18 Benjamín [place] [address] Department [place] [address] Consulting PhysicianHematology and Oncology12/19/23
[2025-11-08 22:47] LABS: Hematocrit 27.3 % (36.0-48.0); Hemoglobin 8.6 g/dL (12.0-16.0); Mean Corpuscular HGB Conc 31.5 g/dL (29.9-35.2); Mean Corpuscular Hemoglobin 29.5 pg (26.7-34.0); Mean Corpuscular Volume 93.5 fL (81.0-99.0); Platelet Count 283 10^3/uL (150-450); Red Blood Count 2.92 10^6/uL (4.20-5.40); White Blood Count 8.4 10^3/uL (4.0-11.0)
[2025-11-08] MEDS: 0.9 % SODIUM CHLORIDE 1,000 ML 1000 ML IV (22:49)
[2025-11-08] MEDS: ACETAMINOPHEN 325 MG TABLET 650 MG PO (22:49)
[2025-11-08 23:02] LABS: Alanine Aminotransferase 19 U/L (14-59); Albumin Globulin Ratio 1.3; Albumin Level 3.9 g/dL (3.4-5.0); Alkaline Phosphatase 103 U/L (46-116); Anion Gap 14.1; Aspartate Amino Transferase 24 U/L (15-37); Blood Urea Nitrogen 34.0 mg/dL (7.0-18.0); Calcium 8.6 mg/dL (8.5-10.1); Carbon Dioxide 25.5 mmol/L (21.0-32.0); Chloride 104 mmol/L (98-107); Estimated GFR (African America 36 (>=60 mL/min/1.73m^2); Estimated GFR (Non-African Ame 29 (>=60 mL/min/1.73m^2); Globulin 3.0 g/dL; Glucose 186 mg/dL (74-106); Potassium 3.6 mmol/L (3.5-5.1); Sodium 140 mmol/L (136-145); Total Protein 6.9 g/dL (6.4-8.2)
[2025-11-08 23:16] LABS: Band Neutrophils Absolute 0.1 10^3/uL (0.0-0.3); Basophils Abs Manual 0.50 10^3/uL (0.00-0.10); Basophils Percent Manual 6.0 % (0.2-2.0); Eosinophils Absolute Manual 0.33 10^3/uL (0.00-0.70); Eosinophils Percent Manual 4.0 % (0.9-7.0); Lymphocytes Absolute Manual 2.01 10^3/uL (1.20-3.80); Lymphocytes Percent Manual 24.0 % (20.5-60.0); Metamyelocytes Absolute Manual 0.25; Monocytes Absolute Manual 0.50 10^3/uL (0.30-0.80); Monocytes Percent Manual 6.0 % (1.7-12.0); Segmented Neut Absolute Manual 4.70 10^3/uL (1.4-6.5); Segmented Neutrophils % Manual 56.0 (43.0-75.0)
[2025-11-08 23:18] LABS: Anisocytosis 1+
[2025-11-09] VITALS: BP 142/85; O2SAT 98
[2025-11-09 00:05] VITALS: O2SAT 99
--- NOTE | 2025-11-09 00:07 | PC.NURSE ---
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 She gets a shot regularly to help keep her levels at a regular rate.
[2025-11-09 00:22] LABS: Hematocrit 24.3 % (36.0-48.0); Hemoglobin 7.7 g/dL (12.0-16.0); Immature Granulocytes Abs Auto 0.65 10^3/uL (0.00-0.03); Immature Granulocytes Pct Auto 10.9 % (0.0-0.5); Lymphocytes Absolute Auto 0.8 10^3/uL (1.2-3.8); Mean Corpuscular HGB Conc 31.7 g/dL (29.9-35.2); Mean Corpuscular Hemoglobin 29.6 pg (26.7-34.0); Mean Corpuscular Volume 93.5 fL (81.0-99.0); Platelet Count 205 10^3/uL (150-450); Red Blood Count 2.60 10^6/uL (4.20-5.40); White Blood Count 6.0 10^3/uL (4.0-11.0)
[2025-11-09 00:30] VITALS: BP 142/82
[2025-11-09 01:23] VITALS: BP 142/89; PULSE 98; O2SAT 99
== END 2025-11-09 01:24 | disposition home or self-care (01) ==
PROVIDERS: Emergency Provider Emergency Medicine; PCP Family Medicine
DX: R04.0 Epistaxis (principal); D64.9 Anemia, unspecified; Z79.02 Long term (current) use of antithrombotics/antiplatelets
CPT/HCPCS: 30901; 36415; 80053; 85007; 85025; 85027; 96374; 99284; J2405

== ENCOUNTER 2025-11-09 18:52 | Emergency (ER) | payer MEDICARE, SELFPAY ==
[2025-11-09 19:12] VITALS: BP 178/74; PULSE 103; TEMP 37.3; O2SAT 100; BMI 26.4
--- NOTE | 2025-11-09 20:03 | ED_ITS ---
HPI - Epistaxis General Chief Complaint: Epistaxis Stated Complaint: Epistaxis Time Seen by Provider: 11/09/25 19:18 Source: patient Mode of arrival: walk-in History of Present Illness HPI Narrative: This 80-year-old female who was seen last night for epistaxis and had a Rhino Rocket placed into her left nares for acute bleeding presents for evaluation and request to have the packing removed. The patient states that last night she had a scab in her nose that she pulled out causing excessive bleeding. She had an episode of hypotension after the packing was placed and received IV fluids and Zofran in the emergency department. Her hemoglobin went to 7.7. She was seen by her cancer doctor today and given a unit of blood. She has not had any excessive bleeding from the left nares since the Rhino Rocket was placed but has pressure in the left side of her face and clear tearing from her eye. She has not had any fever. No additional complaints noted. 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 - Myelofibrosis (ICD-10) Social History Little interest or pleasure in doing things: not at all Feeling down, depressed, or hopeless: not at all Exam Narrative Exam Narrative: Vital signs and Nursing Notes reviewed: Patient is afebrile, mildly tachycardic with a pulse of 103 and blood pressure is elevated 178/74, she is not hypoxic with pulse ox of 100% on room air General: Awake, alert, oriented, no acute distress, lying comfortably on the stretcher HEENT: Normocephalic atraumatic, mucous membranes are moist and pink, eyes are clear, normal conjunctiva, vision is grossly intact, posterior pharynx is normal in appearance. Rhino Rocket was deflated and gently removed from the left nares. Left nares was reevaluated. It is excoriated and inflamed with what appears to be a small blood vessel which was likely the source of bleeding last night. No septal hematoma or other notable abnormality, mild tenderness over the left zygoma with no crepitus, pupils are equal and reactive, no tearing noted Chest: Lungs are clear to auscultation with good air entry, there is no wheezing rhonchi or rales appreciated no accessory muscle use, patient is speaking in complete sentences CVS: Regular rate and rhythm S1-S2, no murmurs rubs or gallops, pulses are brisk and equal bilaterally Extremities: Moving all extremities, no lower extremity tenderness or swelling noted Skin: Normal in appearance without rash,pallor, petechiae or purpura Neuro: No focal deficits Constitutional Vital Signs, click to edit/add: Last Vital Signs Temp 99.2 F 11/09/25 19:12 Pulse 103 H 11/09/25 19:12 Resp 18 11/09/25 19:12 BP 178/74 H 11/09/25 19:12 Pulse Ox 100 11/09/25 19:12 O2 Del Method Room Air 11/09/25 19:12 Course Vital Signs Vital signs: Vital Signs Temperature 99.2 F 11/09/25 19:12 Pulse Rate 103 H 11/09/25 19:12 Respiratory Rate 18 11/09/25 19:12 Blood Pressure 178/74 H 11/09/25 19:12 Pulse Oximetry 100 11/09/25 19:12 Oxygen Delivery Method Room Air 11/09/25 19:12 Temperature 99.2 F 11/09/25 19:12 Pulse Rate 103 H 11/09/25 19:12 Respiratory Rate 18 11/09/25 19:12 Blood Pressure 178/74 H 11/09/25 19:12 Pulse Oximetry 100 11/09/25 19:12 Oxygen Delivery Method Room Air 11/09/25 19:12 MDM - Epistaxis MDM Narrative Medical decision making narrative: This 80-year-old female who is on Plavix and was seen by myself last night for acute epistaxis and had a Rhino Rocket placed presents for evaluation and requesting that the packing be removed. It was gently removed and the nasal mucosa is inflamed but not actively bleeding. A small Merocel dressing was then replaced into the left nares and saline and Afrin was instilled onto the Merisel. She will be discharged home with the Afrin to use to keep the Merisel moist. She was also on a dose of Keflex in the emergency department to prevent sinusitis from the instrumentation and irritation to her nasal mucosa. Discharge Plan Discharge Chief Complaint: Epistaxis Clinical Impression: Epistaxis Patient Disposition: Home, Self-Care Time of Disposition Decision: 20:27 Condition: Good Print Language: Maltese Instructions: Nosebleed (ED) Additional Instructions: Leave the new packing in place for 24 hours. Please keep it moist with the Afrin. Once the packing has been removed consider using daily saline nasal spray to keep your nasal mucosa moist. Use the antibiotics as directed until gone. Referrals: CONNOR MOSQUERA [Primary Care Provider, Family Practice] - 1 week
--- OUTSIDE RECORDS SUMMARY | 2025-11-09 20:16 | XMS_ITS | Clinical Summary ---
Author Organization [facility] Address [address] [place] [address] Care Team Providers Care Unarmed Security Officer Name Role Phone Howard Sullivan Primary Care Provider [phone] Allergies Active AllergyReactionsCriticalityNoted DateCommentsPenicillinsIntolerance 02/03/2013 Medications MedicationSigDispense [...] 12:56pm must administer with evening meal 08-31-2020 [facility] ([id number])08/31/2020Active Active Problems ProblemNoted DateDiagnosed DateOsteoporosis, post-zesjrhkyog99/30/2013Essential pukgxtdwowbzxq23/09/2013 Immunizations ImmunizationAdministration DatesNext Dueinfluenza (HD-IIV3) vaccine, age 65+ yr, high dose, trivalent, PF (FLUZONE HIGH-DOSE)09/25/2019,10/07/2018,09/03/2016 influenza vaccine, unspecified tiqulutdbog02/15/2013pneumococcal conjugate (PCV13) vaccine, 13 valent (PREVNAR 13)09/18/2015 Social History Tobacco UseTypesPacks/DayYears UsedDateSmoking Tobacco: NeverSmokeless Tobacco: NeverAlcohol UseStandard Drinks/WeekCommentsNo0 (1 standard drink = 0.6 oz pure alcohol)PHQ-2AnswerDate RecordedPHQ-2 qfajh211Area Deprivation Index AnswerDate RecordedNational Score (1-100), lower number is lower riskNot on file 10/26/2020State Score (1-10), lower number is lower riskNot on file10/26/2020 Data from: https://www.neighborhoodatlas.medicine.[facility].edu/. Last address used for calculationNot on file10/26/2020CommentsNoSex and Gender Information ValueDate RecordedSex Assigned at BirthNot on fileLegal GouCxfwny93/04/2013 10:53 AM ESTGender IdentityNot on fileSexual OrientationNot on file Last Filed Vital Signs Vital SignReadingTime TakenCommentsBlood Wsfvyavy926/5309/06/2020 10:44 AM EDT Otzuv319509/06/2020 10:44 AM QWBTujhzglukko81.4 ??C (97.5 ??F)09/06/2020 10:44 AM EDTRespiratory Mymn8677 10:44 AM EDTOxygen Zkmxirqdbh56%09/06/2020 10:44 AM EDTInhaled Oxygen Concentration--Flwots96.1 kg (132 lb 6.4 oz)09/06/2020 10:44 AM SQVNsgndv535.1 cm (4' 11.49 )09/06/2020 10:44 AM EDTBody Mass Index26.3 09/06/2020 10:44 AM EDT Plan of Treatment Health MaintenanceDue DateLast DoneCommentsAnxiety Cyffyqyue02/01/1961Depression Gwjvxuyth36/01/1961DTaP,Tdap,Td Vaccine (1 - Tdap)2Bone Density Omicgksan53/01/2008Shingrix Vaccine (2 of 2)Pneumococcal Vaccine: 50+ (2 of 2 - PCV20 or PCV21)RSV Vaccine (1 - 1- dose 75+ series)2018Diabetes Deolcwnkk06/20/691922, 03/23/2020, 11/26/2019, Additional history existsAdvance Directive Nskhhdaffu67/11/2024 Covid-19 Vaccine ( season)2025Influenza Vaccine (#1)2025 09/01/2020, 09/25/2019, 10/07/2018, Additional history exists Procedures Procedure NamePriorityDate/TimeAssociated DiagnosisCommentsCOMPREHENSIVE METABOLIC FXLEPBjkjzor06/20/2020 10:38 AM EDT Essential thrombocythemia (HCC) from Last 3 Months or Most Recently Relevant to Health Maintenance Results * (ABNORMAL) COMP METABOLIC PANEL (09/06/2020 10:38 AM EDT)ComponentValueRef RangeTest MethodAnalysis TimePerformed AtPathologist SignatureProtein, Total 7.86.3 - 8.0 g/dL09/06/2020 11:02 AM [facility] CareAlbumin4.83.9 - 4.9 g/dL09/06/2020 11:02 AM [facility] CareCalcium9.98.5 - 10.2 mg/dL09/06/2020 11:02 AM [facility] CareBilirubin, Total1.00.2 - 1.3 mg/dL09/06/2020 11:02 AM [facility] DepartmentAlkaline Gfyfidytlpa35521 - 123 U/L1 11:02 AM [facility] SyfqBDV72 13 - 35 U/L1 11:02 AM [facility] Ldaodcd014(H)74 - 99 mg/dL09/06/2020 11:02 AM [facility]: The French Diabetes Association (ADA) provides guidance for cutoff [...] Standards of Medical Care in Diabetes 2016, French Diabetes Association. Diabetes Care. 2016.39(Suppl 1). LIF482 - 21 mg/dL09/06/2020 11:02 AM [facility] Creatinine0.55(L)0.58 - 0.96 mg/dL09/06/2020 11:02 AM [facility] MyhuIkzjyf490222 - 144 mmol/L1 11:02 AM [facility] CarePotassium4.63.7 - 5.1 mmol/L1 11:02 AM [facility] OiijPnbgeeok07493 - 105 mmol/L1 11:02 AM [facility] WucxUP63386 - 30 mmol/L 09/06/2020 11:02 AM [facility] CareAnion Yby101 - 18 mmol/L1 11:02 AM [facility] XdliJRH774 - 38 U/L1 11:02 AM [facility] CareeGFR->6009/06/2020 11:02 AM [facility] CareeGFR- All Other Races>60.09/06/2020 11:02 AM [facility] CareComment: eGFR (Estimated GFR) Units [...] StatusEdward Maki MDLABORATORYFinal ResultPerforming OrganizationAddressCity/State/ZIP CodePhone Number [facility] [address] [place] [address] [facility] [address] [place], [place] from Last 3 Months or Most Recently Relevant to Health Maintenance Insurance Care Teams Team MemberRelationshipSpecialtyStart DateEnd Howard Sullivan [address] [place] [phone] PCP - GeneralFamily Medicine01/07/19
--- OUTSIDE RECORDS SUMMARY | 2025-11-09 20:16 | XMS_ITS | Encounter Summary ---
Author Organization [facility] Address [address] [place] [address] Care Team Providers Care Cane Packer Name Role Phone Unavailable Primary Care Provider Unavailabl e Encounter Details DateTypeDepartmentCare Team (Latest Contact Info)Wqlmsnnwzfr86/15/2025External Result Encounter [facility] External Department Unsolicited Thor Monson, DO [address] [place] [address] Social History Tobacco UseTypesPacks/DayYears UsedDateSmoking Tobacco: NeverSmokeless Tobacco: NeverAlcohol UseStandard Drinks/WeekCommentsNot Currently0 (1 standard drink = 0.6 oz pure alcohol)CommentsNoSex and Gender InformationValueDate RecordedSex Assigned at BirthNot on fileLegal TvvInmdbs63/01/2023 8:32 PM EDT Gender IdentityNot on fileSexual OrientationNot on filedocumented as of this encounter Plan of Treatment DateTypeDepartup health systemCare Team (Latest Contact Info)Oflprajyyor99/10/2026 9:30 AM ESTOffice Visit [facility] [address] [place] [address] Shaina Espinoza, MACHINE SET UP OPERATOR-TOBACCO WAREHOUSE MANAGER [address] [place] [address] documented as of this encounter Procedures Procedure NamePriorityDate/TimeAssociated DiagnosisCommentsPATHOLOGIST SLIDE REVIEW ([facility])STAT101/02/2025 10:24 AM EST documented in this encounter Results * PATHOLOGIST SLIDE REVIEW ([facility]) (11/01/2025 10:24 AM EST)ComponentValueRef RangeTest MethodAnalysis TimePerformed AtPathologist SignaturePATHOLOGIST SLIDE REVIEWOrdered Path Ckkasu9211/01/2025 12:09 PM [facility] CtrSpecimen (Source)Anatomical Location / LateralityCollection Method / VolumeCollection TimeReceived TimeOtherTopography unknown / Unknown 11/01/2025 10:24 AM EST11/01/2025 10:24 AM EST Narrative Authorizing ProviderResult TypeResult StatusThor Monson DOLAB BLOOD ORDERABLESFinal ResultPerforming OrganizationAddressCity/State/ZIP CodePhone Number [facility] [address] [place] [address], [facility] [address] [place] [address] documented in this encounter Visit Diagnoses Not on filedocumented in this encounter
--- OUTSIDE RECORDS SUMMARY | 2025-11-09 20:16 | XMS_ITS | Encounter Summary ---
Author Organization [facility] Address [address] [place] [address] Care Team Providers Care Compliance Mgr Name Role Phone Unavailable Primary Care Provider Unavailabl e Encounter Details DateTypeDepartmentCare Team (Latest Contact Info)Znxjsxgsouy83/23/2025External Result Encounter [facility] External Department Unsolicited Thor Monson, DO [address] [place] [address] Social History Tobacco UseTypesPacks/DayYears UsedDateSmoking Tobacco: NeverSmokeless Tobacco: NeverAlcohol UseStandard Drinks/WeekCommentsNot Currently0 (1 standard drink = 0.6 oz pure alcohol)CommentsNoSex and Gender InformationValueDate RecordedSex Assigned at BirthNot on fileLegal VnzFpjgub27/01/2023 8:32 PM EDT Gender IdentityNot on fileSexual OrientationNot on filedocumented as of this encounter Plan of Treatment DateTypeDelawrence memorial hospitalCare Team (Latest Contact Info)Irmwfbaevun35/10/2026 9:30 AM ESTOffice Visit [facility] [address] [place] [address] Shaina Espinoza, REGIONAL PLANNER-LICENSED MASSAGE PRACTITIONER [address] [place] [address] NameTypePriorityAssociated DiagnosesDate/TimeCBC auto differentialLabSTAT 11/09/2025 11:05 AM ESTdocumented as of this encounter Procedures Procedure NamePriorityDate/TimeAssociated DiagnosisCommentsDIFF AND CBCSTAT 11/09/2025 11:05 AM EST documented in this encounter Results * (ABNORMAL) DIFF AND CBC (11/09/2025 11:05 AM EST)ComponentValueRef RangeTest MethodAnalysis TimePerformed AtPathologist SignatureWBC8.83.8 - 11.6 [CFU]/mL 11/09/2025 12:28 PM [facility] CtrComment: --- ??11/09/25 1228 --- WBC previously reported as: ??8.7 X10E3/uL UNCORRECTED WHITE BLOOD COUNT8.83.8 - 11.6 10*3/uL11/09/2025 12:28 PM [facility] CtrComment: --- ??11/09/25 1228 --- UNWBC previously reported as: ??8.7 x10E3/uL RBC2.83(L)3.60 - 5.00 10*6/uL11/09/2025 12:28 PM [facility] CtrComment: --- ??11/09/25 1228 --- RBC previously reported as: ??2.89 ??L x10E6/uL HEMOGLOBIN8.4(L)11.8 - 15.4 g/dL11/09/2025 11:50 AM [facility] EvxULGZRFFYZC88.9(L)34.0 - 46.4 %11/09/2025 12:28 PM [facility] CtrComment: --- ??11/09/25 1228 --- HCT previously reported as: ??25.2 ??L % MCV87.780 - 100 fL11/09/2025 12:28 PM [facility] CtrComment: --- ??11/09/25 1228 --- MCV previously reported as: ??87.1 fl MCH29.524.7 - 34.3 pg11/09/2025 12:28 PM [facility] Ctr Comment: --- ??11/09/25 1228 --- MCH previously reported as: ??29.0 pg MCHC33.732.0 - 35.0 g/dL11/09/2025 12:28 PM [facility] Ctr Comment: --- ??12/23/25 1228 --- MCHC previously reported as: ??33.3 g/dL RED CELL DISTRIBUTION WIDTH, RDW18.4(H)11.9 - 15.3 %11/09/2025 11:50 AM [facility] CtrPLATELET BIDQZ760962 - 450 10*3/uL11/09/2025 12:28 PM [facility] CtrComment: --- ??11/09/25 1228 --- Plt previously reported as: ??286 x10E3/uL MEAN PLATELET VOLUME, MPV7.86.3 - 10.7 fL11/09/2025 11:50 AM [facility] CtrSEGMENTED ZWWUEVAJOPI7524 - 70 %11/09/2025 12:27 PM [facility] CtrBAND GOOJPCLDIQH88(H)0 - 5 %11/09/2025 12:27 PM [facility] MstIGXQNOCAPDE96(L)18 - 42 %11/09/2025 12:27 PM [facility] YieHWWHTTZJK87 - 11 %11/09/2025 12:27 PM [facility] CtrEOSINOPHILS5(H)1 - 3 %11/09/2025 12:27 PM [facility] CtrBASOPHILS3(H)0 - 2 %11/09/2025 12:27 PM [facility] CtrMETAMYELOCYTES3(H)0 - 0 %11/09/2025 12:27 PM [facility] CtrMYELOCYTES2(H)0 - 0 %11/09/2025 12:27 PM [facility] CtrBLASTS, NOT DIFFERENTIATED1(HH)0 - 0 %11/09/2025 12:30 PM [facility] CtrComment: Critical value result called at 1228 on 11/09/25 NUCLEATED RED BLOOD CELL5(H)0 - 0 /100{WBC}11/09/2025 12:27 PM [facility] IfwMQSLYJSFJDZBGTxvnxm74/23/2025 12:27 PM [facility] XryWNRDTUEVVZCUEQXwjojw55/23/2025 12:27 PM [facility] TbyMACJUFGHCKFAZstahg94/23/2025 12:27 PM [facility] JkkICKFIGWNHTCDNczftq49/23/2025 12:27 PM [facility] Ctr AWEFBVSSCWMeswqo59/23/2025 12:27 PM [facility] CtrPLATELET IDGZSEDPOsezlnLbubax48/23/2025 12:27 PM [facility] Ctr PLATELET QQJWGAWPNAXrzybsXkgiap48/23/2025 12:27 PM [facility] CtrSpecimen (Source)Anatomical Location / LateralityCollection Method / Volume Collection TimeReceived TimeBlood (Blood)11/09/2025 11:05 AM EST11/09/2025 11:15 AM EST Narrative Authorizing ProviderResult TypeResult StatusThor Monson DOLAB BLOOD ORDERABLESEdited Result - FinalPerforming OrganizationAddressCity/State/ZIP Code Phone Number [facility] [address] [place] [address], [facility] [address] [place] [address] documented in this encounter Visit Diagnoses Not on filedocumented in this encounter
--- OUTSIDE RECORDS SUMMARY | 2025-11-09 20:16 | XMS_ITS | Clinical Summary ---
Author Organization [facility] Address [address] [place] [address] Care Team Providers Care Electrophysiology Nurse Practitioner Name Role Phone Unavailable Primary Care Provider Unavailabl e Allergies Active AllergyReactionsCriticalityNoted DateCommentsPenicillinsOther,Diarrhea,GI intolerance,Jsjdrxe6402/03/2013 Medications MedicationSigDispense QuantityRefillsLast FilledStart DateEnd DateStatus rivaroxaban [...] DateDiagnosed DateBlood clot in vein Encounters DateTypeDepartmentCare UqtrSqkuknebyra79/23/2025External Result Encounter [facility] External Department Unsolicited Thor Monson, DO 11/01/2025External Result Encounter [facility] External Department Unsolicited Thor Monson, DO 11/01/2025External Result Encounter [facility] External Department Unsolicited Thor Monson, DO 11/01/2025External Result Encounter [facility] External Department Unsolicited Thor Monson, DO 10/25/2025 10:35 AM ESTOffice Visit [facility] [address] [place] [address] Shaina Espinoza, SUPERVISOR ASSEMBLY STOCK-SET UP OPERATOR Other atopic dermatitis; Xdenkbx03/08/2025amboo flowsheet [facility] [address] [place] [address] Shaina Espinoza, SUPERVISOR ASSEMBLY STOCK-SET UP OPERATOR 10/25/20254046Perclk18/20/2025External Result Encounter [facility] External Department Unsolicited Thor Monson, DO 10/07/2025External Result Encounter [facility] External Department Unsolicited Thor Monson, DO 09/23/2025 10:40 AM ESTOffice Visit [facility] [address] [place] [address] Shaina Espinoza, SUPERVISOR ASSEMBLY STOCK-SET UP OPERATOR Seborrheic keratosis (Primary Dx); Other atopic jujnvtyuxz46/06/2025amboo flowsheet [facility] [address] [place] [address] Shaina Espinoza, SUPERVISOR ASSEMBLY STOCK-SET UP OPERATOR 09/23/20259470Beboyx35/05/2025External Result Encounter [facility] External Department Unsolicited Thor Monson, DO 09/22/2025External Result Encounter [facility] External Department Unsolicited Thor Monson, DO 09/01/2025External Result Encounter [facility] External Department Unsolicited Thor Mosnon, DO 09/01/2025External Result Encounter [facility] External Department [...] InformationValueDate RecordedSex Assigned at BirthNot on fileLegal ZugGkbgmz98/01/2023 8:32 PM EDTGender Identity Not on fileSexual OrientationNot on file Last Filed Vital Signs Vital SignReadingTime TakenCommentsBlood Crpjdbxg837/80003/16/2025 1:09 PM EDT Pulse--Temperature--Respiratory Rate--Oxygen Saturation--Inhaled Oxygen Concentration--Ofypfv03.3 kg (144 lb)02/16/2025 12:54 PM KLLYdpwjr492.8 cm (4' 11.75 )03/03/2018 12:00 PM EDTBody Mass Index28.36003/03/2018 12:00 PM EDT Plan of Treatment DateTypeDepartmentCare Team (Latest Contact Info)Wybinaytuje38/10/2026 9:30 AM ESTOffice Visit [facility] [address] [place] [address] Shaina Espinoza, SUPERVISOR ASSEMBLY STOCK-SET UP OPERATOR [address] [place] [address] Health MaintenanceDue DateLast DoneCommentsPneumococcal Vaccine: 65+ Years (2 of 2 - PCV20 or PCV21)Influenza Vaccine (#1)2025 08/13/2024, 08/15/2023, 09/25/2021, Additional history exists Procedures Procedure NamePriorityDate/TimeAssociated DiagnosisCommentsDIFF AND CBCSTAT 11/09/2025 11:05 AM EST PATHOLOGIST SLIDE REVIEW ([facility])STAT101/02/2025 10:24 AM EST DIFF AND AEIDYOG1411/01/2025 10:24 AM EST COMPREHENSIVE METABOLIC ELWEGEYGA91/15/2025 10:24 AM EST DIFF AND TYUEOUT4610/07/2025 10:49 AM EST COMPREHENSIVE METABOLIC QDOUHORDX13/20/2025 10:49 AM EST DIFF AND SLTPNWA6909/22/2025 8:34 AM EST COMPREHENSIVE METABOLIC CNGDNERVD97/05/2025 8:34 AM EST DIFF AND DANVPUE8209/01/2025 9:12 AM EDT COMPREHENSIVE METABOLIC KUOKJOIJT69/15/2025 9:12 AM EDT PATHOLOGIST SLIDE REVIEW ([facility])STAT08/11/2025 8:35 AM EDT DIFF AND RMGIKIA9008/11/2025 8:35 AM EDT CBC WITH AUTO AUJDIVTFXBVLYRLA49/24/2025 8:35 AM EDT COMPREHENSIVE METABOLIC LQTGQYBTC02/24/2025 8:35 AM EDT from Last 3 Months Results * (ABNORMAL) DIFF AND CBC (11/09/2025 11:05 AM EST) Only the most recent of6 resultswithin the time period is included. ComponentValueRef RangeTest MethodAnalysis TimePerformed AtPathologist Signature WBC8.83.8 - 11.6 [CFU]/mL11/09/2025 12:28 PM [facility]tr Comment: --- ??11/09/25 1228 --- WBC previously reported as: ??8.7 X10E3/uL UNCORRECTED WHITE BLOOD COUNT8.83.8 - 11.6 10*3/uL11/09/2025 12:[address] [facility] CtrComment: --- ??11/09/25 1228 --- UNWBC previously reported as: ??8.7 x10E3/uL RBC2.83(L)3.60 - 5.00 10*6/uL11/09/2025 12:28 PM [facility] CtrComment: --- ??11/09/25 1228 --- RBC previously reported as: ??2.89 ??L x10E6/uL HEMOGLOBIN8.4(L)11.8 - 15.4 g/dL11/09/2025 11:50 AM [facility] TpqHQLOHFQSVM47.9(L)34.0 - 46.4 %11/09/2025 12:28 PM [facility] CtrComment: --- ??11/09/25 1228 --- HCT previously reported as: ??25.2 ??L % MCV87.780 - 100 fL11/09/2025 12:28 PM [facility] CtrComment: --- ??11/09/25 1228 --- MCV previously reported as: ??87.1 fl MCH29.524.7 - 34.3 pg11/09/2025 12:28 PM [facility] Comment: --- ??11/09/25 1228 --- MCH previously reported as: ??29.0 pg MCHC33.732.0 - 35.0 g/dL11/09/2025 12:28 PM [facility] Comment: --- ??11/09/258 --- MCHC previously reported as: ??33.3 g/dL RED CELL DISTRIBUTION WIDTH, RDW18.4(H)11.9 - 15.3 %11/09/2025 11:[address] [facility] CtrPLATELET TUJFN726464 - 450 10*3/uL11/09/2025 12:28 PM [facility] CtrComment: --- ??11/09/25 1228 --- Plt previously reported as: ??286 x10E3/uL MEAN PLATELET VOLUME, MPV7.86.3 - 10.7 fL11/09/2025 11:50 AM [facility] CtrSEGMENTED XYZYWPNYNBN2886 - 70 %11/09/2025 12:[address] [facility] CtrBAND OSQIUFMXIRK40(H)0 - 5 %11/09/2025 12:27 PM [facility] HesKLOXGUCXOSR57(L)18 - 42 %11/09/2025 12:27 PM [facility] KseQCILAANAW52 - 11 %11/09/2025 12:[address] [facility] CtrEOSINOPHILS5(H)1 - 3 %11/09/2025 12:[address] [facility] CtrBASOPHILS3(H)0 - 2 %11/09/2025 12:[address] [facility] CtrMETAMYELOCYTES3(H)0 - 0 %11/09/2025 12:[address] [facility] CtrMYELOCYTES2(H)0 - 0 %11/09/2025 12:[address] [facility] CtrBLASTS, NOT DIFFERENTIATED1(HH)0 - 0 %11/09/2025 12:30 PM [facility] CtrComment: Critical value result called at 1228 on 11/09/25 NUCLEATED RED BLOOD CELL5(H)0 - 0 /100{WBC}11/09/2025 12:27 PM [facility] SqbRSPAVIXAMKYEZSusvkc78/23/2025 12:27 PM [facility] VdeJMZSLCZTICSAMIQsigab93/23/2025 12:27 PM [facility] NcbWRHKJTGDTMHLWqsptd53/23/2025 12:27 PM [facility] FmfIXTKBXNUHSSNPwhwey38/23/2025 12:27 PM [facility]tr QJYDXRTTVPXnoqqp91/23/2025 12:27 PM [facility] CtrPLATELET AQATRODHSyxgffXzgzfn19/23/2025 12:27 PM [facility] PLATELET ULBIBVBTFZWxiiouOsyzxy64/23/2025 12:27 PM [facility] CtrSpecimen (Source)Anatomical Location / LateralityCollection Method / Volume Collection TimeReceived TimeBlood (Blood)11/09/2025 11:05 AM EST11/09/2025 11:15 AM EST Narrative Authorizing ProviderResult TypeResult StatusThor BEVERLYAB BLOOD ORDERABLESEdited Result - FinalPerforming OrganizationAddressCity/State/ZIP Code Phone Number [facility] [address] [place] [address], [facility] [address] [place] [address] * PATHOLOGIST SLIDE REVIEW ([facility]) (11/01/2025 10:24 AM EST) Only the most recent of2 resultswithin the time period is included. ComponentValueRef RangeTest MethodAnalysis TimePerformed AtPathologist Signature PATHOLOGIST SLIDE REVIEWOrdered Path Nysnxf7411/01/2025 12:09 PM [facility] CtrSpecimen (Source)Anatomical Location / LateralityCollection Method / VolumeCollection TimeReceived TimeOtherTopography unknown / Unknown 11/01/2025 10:24 AM EST11/01/2025 10:24 AM EST Narrative Authorizing ProviderResult TypeResult StatusThor DESOUZA BLOOD ORDERABLESFinal ResultPerforming OrganizationAddressCity/State/ZIP CodePhone Number [facility] [address] [place] [address], [facility] [address] [place] [address] * (ABNORMAL) Comprehensive metabolic panel (11/01/2025 10:24 AM EST) Only the most recent of5 resultswithin the time period is included. ComponentValueRef RangeTest MethodAnalysis TimePerformed AtPathologist Signature Mlypgui5951 - 100 mg/dL11/01/2025 11:07 AM [facility] Comment: Random Glucose Reference Range is dependent on time and content of last meal. Glucose of more than 200 mg/dL in a nonstressed, ambulatory subject supports the diagnosis of Diabetes Mellitus. ADA recommended reference range CWE311 - 25 mg/dL11/01/2025 11:07 AM [facility] CtrCREATININE 0.790.60 - 1.20 mg/dL11/01/2025 11:07 AM [facility] ESTIMATED GFR>60. 11:07 AM [facility] VmxVojwzo119 136 - 145 mmol/L101/02/2025 11:07 AM [facility] CtrPotassium, Bld4.33.5 - 5.1 mmol/L101/02/2025 11:07 AM [facility] Rcrenszu79878 - 107 mmol/L12/ 11:07 AM [facility] Carbon Laphzeh37.621.0 - 31.0 mmol/L101/02/2025 11:07 AM [facility] CtrAnion Gap9.76.0 - 15.012 11:07 AM [facility] CtrCalcium8.88.6 - 10.3 mg/dL11/01/2025 11:07 AM [facility] CtrTOTAL PROTEIN6.56.4 - 8.9 g/dL11/01/2025 11:07 AM [facility] CtrALBUMIN LEVEL4.53.5 - 5.7 g/dL11/01/2025 11:[address] [facility] CtrGLOBULIN2.0g/dL11/01/2025 11:07 AM [facility] CtrALBUMIN/GLOBULIN RATIO2.312 11:07 AM [facility] CtrBILIRUBIN,TOTAL1.1(H)0.3 - 1.0 mg/dL11/01/2025 11:[address] [facility] CtrASPARTATE AMINO MJNCDNZLDXB3581 - 39 U/L101/02/2025 11:07 AM [facility] CtrALANINE ZTHQUKSZJUHVAAGG551 - 52 U/L 11/01/2025 11:07 AM [facility] CtrALKALINE RPCSADIKFOG96810 - 104 U/L101/02/2025 11:07 AM [facility] CtrCREATININE CLR CALC VYFAQTAJ41.6611/01/2025 11:07 AM [facility] CtrSpecimen (Source)Anatomical Location / LateralityCollection Method / VolumeCollection TimeReceived TimeOtherTopography unknown / Bracirk2811/01/2025 10:24 AM EST 11/01/2025 10:24 AM EST Narrative Authorizing ProviderResult TypeResult StatusThor BEVERLYAB BLOOD ORDERABLESFinal ResultPerforming OrganizationAddressCity/State/ZIP CodePhone Number [facility] [address] [place] [address], [facility] [address] [place] [address] * (ABNORMAL) CBC auto differential (08/11/2025 8:35 AM EDT)ComponentValueRef RangeTest MethodAnalysis TimePerformed AtPathologist SignatureWBC6.03.8 - 11.6 [CFU]/mL08/11/2025 2:20 PM [facility] CtrUNCORRECTED WHITE BLOOD COUNT6.03.8 - 11.6 10*3/uL08/11/2025 2:20 PM [facility] CtrRBC3.15(L)3.60 - 5.00 10*6/uL08/11/2025 2:20 PM [facility] CtrHEMOGLOBIN9.3(L)11.8 - 15.4 g/dL08/11/2025 2:[address] [facility] EanPHJWICZLQY30.4(L)34.0 - 46.4 %08/11/2025 2:20 PM [facility] YfiORU35.180 - 100 fL08/11/2025 2:[address] [facility] RpwMGX46.624.7 - 34.3 pg08/11/2025 2:[address] [facility] DjdVVQS43.932.0 - 35.0 g/dL08/11/2025 2:[address] [facility] CtrRED CELL DISTRIBUTION WIDTH, RDW18.1(H)11.9 - 15.3 %08/11/2025 2:20 PM [facility] CtrPLATELET VOJUU679368 - 450 10*3/uL08/11/2025 2:20 PM [facility] CtrMEAN PLATELET VOLUME, MPV7.76.3 - 10.7 fL08/11/2025 2:20 PM [facility] CtrSpecimen (Source)Anatomical Location / LateralityCollection Method / VolumeCollection TimeReceived TimeBlood (Blood)08/11/2025 8:35 AM EDT 08/11/2025 8:35 AM EDT Narrative Authorizing ProviderResult TypeResult StatusThor Monson DOLAB BLOOD ORDERABLESFinal ResultPerforming OrganizationAddressCity/State/ZIP CodePhone Number [facility] [address] [place] [address], [facility] [address] [place] [address] from Last 3 Months Insurance
--- OUTSIDE RECORDS SUMMARY | 2025-11-09 20:17 | XMS_ITS | Encounter Summary ---
Author Organization [facility] Address [address] [place] [address] Phone Care Team Providers Care User Interface Developer Name Role Phone Karl Moura MD Primary Care Provider [phone] Benjamín Weiss MD Unavailable [phone] Encounter Details DateTypeDepartmentCare Team (Latest Contact Info)Fuvobmsffkx15/09/2025Specialty Pharmacy [facility] [address] [place] [address] Aga Denson Refill Coordination Outreach (30 day recurrence) - fedratinib dihydrochloride (Inrebic) for Oncology Core Social History Tobacco UseTypesPacks/DayYears UsedDateSmoking Tobacco: NeverSmokeless Tobacco: NeverAlcohol UseStandard Drinks/WeekCommentsNever0 (1 standard drink = 0.6 oz pure alcohol)CommentsUnknownSex and Gender InformationValueDate Recorded Sex Assigned at BirthNot on fileLegal XsyIqbjsp02/26/2022 5:48 AM ESTGender IdentityNot on fileSexual OrientationNot on filedocumented as of this encounter Plan of Treatment DateTypeDepartmentCare Team (Latest Contact Info)Owytgmgpuqu18/12/2026 10:20 AM ESTOffice Visit [facility] at [address] [place] [address] Benjamín Weiss MD [address] MARISA Moss, [address] [place], [place] [id number] documented as of this encounter Visit Diagnoses Not on filedocumented in this encounter Additional Health Concerns AssessmentNoted TimeA fall risk assessment has been completed for the patient 12/19/2023 9:44 AM ESTdocumented as of this encounter Care Teams Team MemberRelationshipSpecialtyStart [place] [address] Department of Medicine-[place] [address] PCP - General06/19/18 Benjamín [place] [address] [facility] of Medicine-[place] [address] Consulting PhysicianHematology and Oncology12/19/23documented as of this encounter
--- OUTSIDE RECORDS SUMMARY | 2025-11-09 20:17 | XMS_ITS | Encounter Summary ---
Author Organization [facility] Address [address] [place] [address] Care Team Providers Care Energy Conservation Technician Name Role Phone Unavailable Primary Care Provider Unavailabl e Encounter Details DateTypeDepartmentCare Team (Latest Contact Info)Grmadjeysrz68/15/2025External Result Encounter [facility] External Department Unsolicited Thor Monson, DO [address] [place] [address] Social History Tobacco UseTypesPacks/DayYears UsedDateSmoking Tobacco: NeverSmokeless Tobacco: NeverAlcohol UseStandard Drinks/WeekCommentsNot Currently0 (1 standard drink = 0.6 oz pure alcohol)CommentsNoSex and Gender InformationValueDate RecordedSex Assigned at BirthNot on fileLegal DbhBywgqm87/01/2023 8:32 PM EDT Gender IdentityNot on fileSexual OrientationNot on filedocumented as of this encounter Plan of Treatment DateType[facility] systemCare Team (Latest Contact Info)Urhaubwpgke61/10/2026 9:30 AM ESTOffice Visit [facility] [address] [place] [address] Shaina Espinoza, UNIVERSITY CONTROLLER-TECHNICAL SERVICES REP [address] [place] [address] NameTypePriorityAssociated DiagnosesDate/TimeCBC auto differentialLabSTAT 11/01/2025 10:24 AM ESTdocumented as of this encounter Procedures Procedure NamePriorityDate/TimeAssociated DiagnosisCommentsDIFF AND CBCSTAT 11/01/2025 10:24 AM EST documented in this encounter Results * (ABNORMAL) DIFF AND CBC (11/01/2025 10:24 AM EST)ComponentValueRef RangeTest MethodAnalysis TimePerformed AtPathologist SignatureWBC5.93.8 - 11.6 [CFU]/mL 11/01/2025 10:47 AM [facility] CtrUNCORRECTED WHITE BLOOD COUNT5.93.8 - 11.6 10*3/uL11/01/2025 10:47 AM [facility] CtrRBC3.26(L)3.60 - 5.00 10*6/uL11/01/2025 10:47 AM [facility] CtrHEMOGLOBIN9.6(L)11.8 - 15.4 g/dL11/01/2025 10:47 AM [facility] OelUJWUDVDHRH59.5(L)34.0 - 46.4 %11/01/2025 10:47 AM [facility] FzbADG08.480 - 100 fL11/01/2025 10:47 AM [facility] CyjSAZ05.624.7 - 34.3 pg11/01/2025 10:47 AM [facility] KpnNEMT61.832.0 - 35.0 g/dL11/01/2025 10:47 AM [facility] CtrRED CELL DISTRIBUTION WIDTH, RDW18.4(H)11.9 - 15.3 %11/01/2025 10:47 AM [facility] CtrPLATELET GRGLD494 150 - 450 10*3/uL11/01/2025 10:47 AM [facility] CtrMEAN PLATELET VOLUME, MPV7.26.3 - 10.7 fL11/01/2025 10:47 AM [facility] CtrSpecimen (Source)Anatomical Location / LateralityCollection Method / VolumeCollection TimeReceived TimeBlood (Blood)11/01/2025 10:24 AM EST 11/01/2025 10:24 AM EST Narrative Authorizing ProviderResult TypeResult StatusThor BEVERLYAB BLOOD ORDERABLESFinal ResultPerforming OrganizationAddressCity/State/ZIP CodePhone Number [address] [place] [address], [facility] [address] [place] [address] documented in this encounter Visit Diagnoses Not on filedocumented in this encounter
--- OUTSIDE RECORDS SUMMARY | 2025-11-09 20:17 | XMS_ITS | Encounter Summary ---
Author Organization [facility] Address [address] [place] [address] Care Team Providers Care Transportation Engineering Technician Name Role Phone Unavailable Primary Care Provider Unavailabl e Encounter Details DateTypeDepartmentCare Team (Latest Contact Info)Ndoqiyygrak59/15/2025External Result Encounter [facility] Unsolicited Thor Monson, DO [address] [place] [address] Social History Tobacco UseTypesPacks/DayYears UsedDateSmoking Tobacco: NeverSmokeless Tobacco: NeverAlcohol UseStandard Drinks/WeekCommentsNot Currently0 (1 standard drink = 0.6 oz pure alcohol)CommentsNoSex and Gender InformationValueDate RecordedSex Assigned at BirthNot on fileLegal FodXeohkf73/01/2023 8:32 PM EDT Gender IdentityNot on fileSexual OrientationNot on filedocumented as of this encounter Plan of Treatment DateTypeDepartuniversity of [facility]–westCare Team (Latest Contact Info)Mvoizbzaczf56/10/2026 9:30 AM ESTOffice Visit [facility] [address] [facility] [address] [place] [address] Shaina Espinoza, SWITCHBOARD INSTALLER-TARRING MACHINE OPERATOR [address] [facility] [address] [place] [address] documented as of this encounter Procedures Procedure NamePriorityDate/TimeAssociated DiagnosisCommentsCOMPREHENSIVE METABOLIC QTMRGMIQW77/15/2025 10:24 AM EST documented in this encounter Results * (ABNORMAL) Comprehensive metabolic panel (11/01/2025 10:24 AM EST)Component ValueRef RangeTest MethodAnalysis TimePerformed AtPathologist SignatureGlucose 9270 - 100 mg/dL11/01/2025 11:07 AM [facility]trComment: Random Glucose Reference Range is dependent on time and content of last meal. Glucose of more than 200 mg/dL in a nonstressed, ambulatory subject supports the diagnosis of Diabetes Mellitus. ADA recommended reference range PBY529 - 25 mg/dL11/01/2025 11:07 AM [facility] CtrCREATININE 0.790.60 - 1.20 mg/dL11/01/2025 11:07 AM [facility] ESTIMATED GFR>60. 11:07 AM [facility] TbjLsgigj172 136 - 145 mmol/L101/02/2025 11:07 AM [facility] CtrPotassium, Bld4.33.5 - 5.1 mmol/L101/02/2025 11:07 AM [facility] Pfekyuzk03719 - 107 mmol/L101/02/2025 11:07 AM [facility] Carbon Fcudbsm04.621.0 - 31.0 mmol/L101/02/2025 11:07 AM [facility] CtrAnion Gap9.76.0 - 15. 11:07 AM [facility] CtrCalcium8.88.6 - 10.3 mg/dL11/01/2025 11:07 AM [facility] CtrTOTAL PROTEIN6.56.4 - 8.9 g/dL11/01/2025 11:07 AM [facility] CtrALBUMIN LEVEL4.53.5 - 5.7 g/dL11/01/2025 11:07 AM [facility] CtrGLOBULIN2.0g/dL11/01/2025 11:07 AM [facility] CtrALBUMIN/GLOBULIN RATIO2. 11:07 AM [facility] CtrBILIRUBIN,TOTAL1.1(H)0.3 - 1.0 mg/dL11/01/2025 11:07 AM [facility] CtrASPARTATE AMINO XROMGFQXQGY6010 - 39 U/L101/02/2025 11:07 AM [facility] CtrALANINE UATXAFBQQZVDOUFG989 - 52 U/L 11/01/2025 11:07 AM [facility] CtrALKALINE TQIRKPTJQBE22508 - 104 U/L101/02/2025 11:07 AM [facility] CtrCREATININE CLR CALC IPJTRRWI37.6611/01/2025 11:07 AM [facility] CtrSpecimen (Source)Anatomical Location / LateralityCollection Method / VolumeCollection TimeReceived TimeOtherTopography unknown / Azihjnt0111/01/2025 10:24 AM EST 11/01/2025 10:24 AM EST Narrative Authorizing ProviderResult TypeResult StatusThor BEVERLYAB BLOOD ORDERABLESFinal ResultPerforming OrganizationAddressCity/State/ZIP CodePhone Number [facility] [address] [place] [address], [facility] [address] [place] [address] documented in this encounter Visit Diagnoses Not on filedocumented in this encounter
--- OUTSIDE RECORDS SUMMARY | 2025-11-09 20:17 | XMS_ITS | Clinical Summary ---
Author Organization [facility] Address [address] [place] [address] Phone Care Team Providers Care Manufacturing Worker Name Role Phone Karl Moura MD Primary Care Provider [phone] Benjamín Weiss MD Unavailable [phone] Allergies Active AllergyReactionsCriticalityNoted VxfyOtfsrmnlQulmgzdbvtNgllhtlm42/01/2024 Medications MedicationSigDispense QuantityRefillsLast FilledStart DateEnd DateStatus levothyroxine (Synthroid, Levoxyl) 75 mcg tablet Take 1 tablet (75 mcg) by mouth once daily in the morning. Take before meals. 11/13/2023ctive rivaroxaban (XARELTO STARTER PACK) 15 mg (42)- 20 mg (9) tablets,dose pack rivaroxaban Rivaroxaban Active 0 Oral .COMPLEX August 31, 2020 12:56pm must administer with evening meal 08-31-2020 [facility] ([address])08/31/2020Active acetaminophen (Tylenol) 500 mg capsule Daily06/09/2021ctive fedratinib (Inrebic) 100 mg capsule Indications:Secondary myelofibrosis (Multi)Take 3 capsules (300 mg) by mouth once daily. 90 capsule 9:20 AM EST5Active fedratinib (Inrebic) 100 mg capsule Indications:Secondary myelofibrosis (Multi)Take 3 capsules (300 mg) by mouth once daily. 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 Secondary myelofibrosis (Multi)09/21/2025Specialty [facility]acy [facility] [address] [place] [address] Adeola Hercules Refill Coordination Outreach (30 day recurrence) - fedratinib dihydrochloride (Inrebic) for Oncology Corefrom Last 3 Months Social History Tobacco UseTypesPacks/DayYears UsedDateSmoking Tobacco: NeverSmokeless Tobacco: Never Tobacco Cessation:Counseling Given: Not Answered Alcohol UseStandard Drinks/WeekCommentsNever0 (1 standard drink = 0.6 oz pure alcohol)CommentsUnknownSex and Gender InformationValueDate RecordedSex Assigned at BirthNot on fileLegal OvbDzlrpv66/26/2022 5:48 AM ESTGender Identity Not on fileSexual OrientationNot on file Last Filed Vital Signs Vital SignReadingTime TakenCommentsBlood Extbvztu166/7307/01/2025 10:02 AM EDT Ejxae755207/01/2025 10:02 AM OXYMkhyunzoohj41.2 ??C (97.2 ??F)07/01/2025 10:02 AM EDTRespiratory Zonv458307/01/2025 10:02 AM EDTOxygen Pxjrszhtzz39%07/01/2025 10:02 AM EDTInhaled Oxygen Concentration--Piamqg17.2 kg (148 lb 2.4 oz)07/01/2025 10:02 AM VCUXyocqg602.7 cm (4' 9.76 )06/18/2024 9:39 AM EDTBody Mass Index31.23 06/18/2024 9:39 AM EDT Plan of Treatment DateTypeDepartmentCare Team (Latest Contact Info)Mclezgulodb23/12/2026 10:20 AM ESTOffice Visit [facility] [address] [facility] [address] [place] [address] Benjamín Weiss MD [address] MARISA Moss, [address] [place] [address] Health MaintenanceDue DateLast DoneCommentsLipid Panel1943TSH Level [...] ID:Not on file Type:Not on file Address: [address] MemberSubscriberPlan / Payer (Effective 2023-Present)Name:Grace Fenton Relation to Subscriber:SelfName:Grace Fenton Payer ID:Not on file Group ID:Not on file Type:Not on file Address: [place] [phone] Care Teams Team MemberRelationshipSpecialtyStart [place] [address] Department [place] [address] [facility]06/19/18 Benjamín [place] [address] Department [place] [address] Consulting PhysicianHematology and Oncology12/19/23
--- NOTE | 2025-11-09 20:18 | PC.NURSE ---
Patient here for rhino rocket removal. Removed my physician.
[2025-11-09] MEDS: OXYMETAZOLINE HCL 0.05% NASAL SPRAY 2 SPRAY NS (20:20)
[2025-11-09] MEDS: CEPHALEXIN 500 MG CAPSULE PO (20:20)
[2025-11-09 20:23] VITALS: BP 171/74; PULSE 100; O2SAT 99
== END 2025-11-09 20:31 | disposition home or self-care (01) ==
PROVIDERS: Emergency Provider Emergency Medicine; PCP Family Medicine
DX: R04.0 Epistaxis (principal)
CPT/HCPCS: 99281